=== PATIENT | female | born 1950 | race Caucasian/White ===

== ENCOUNTER → 2018-04-28 01:07 | Outpatient (CLI) | payer MEDICARE, OTHER, SELFPAY ==
--- NOTE | 2018-04-28 10:30 | MERGE_ITS ---
*[facility]* *[facility]* [address] [place] [address] Date of study: 04/28/2018 Transthoracic Echocardiography M-mode, complete 2D, complete spectral Doppler, and color Doppler *STUDY CONCLUSIONS* Summary: 1. Left ventricle: The cavity size was normal. Systolic function was normal. The estimated ejection fraction was 60-65%. Mild hypokinesis of the inferolateral myocardium. Doppler parameters are consistent with high ventricular filling pressure. 2. Mitral valve: There was mild regurgitation. 3. Right ventricle: The cavity size was normal. Wall thickness was normal. Systolic function was normal. 4. Right atrium: The atrium was mildly dilated. 5. Atrial septum: No defect or patent foramen ovale was identified. 6. Tricuspid valve: There was moderate regurgitation. 7. Pulmonary arteries: Pulmonary systolic pressure was in the range of 25mm Hg to 35mm Hg. 8. Inferior vena cava: The vessel was patent and normal in size. The respirophasic diameter changes were in the normal range (greater than or equal to 50%), consistent with normal central venous pressure. *PATIENT PRESENTATION* Height: 180.3cm ((71in) ) S/D Pressure: 137 / 89 Weight: 117.9kg ((259.5lb) ) BSA: 2.36m^2 Test start time: 10:40 AM. Test stop time: 11:30 AM. ORDERING Ravi Parks MD REFERRING Ravi Parks MD PERFORMING Unknown PERFORMING [facility] RESTAURANT ASSISTANT RT Dillan (R)(CANDICE)LOYD *PROCEDURE DATA* Procedure information: The patient was identified by two identifiers. This study was interpreted by [facility]. Pertinent images and digital data are archived for permanent storage and are available for subsequent review. No prior study was available for comparison. Study status: Routine. Transthoracic echocardiography. M-mode, complete 2D, complete spectral Doppler, and color Doppler. A Transthoracic Echocardiogram was performed. Scanning was performed from the parasternal, apical, subcostal, and suprasternal notch acoustic windows. Images were obtained using an [id number] cardiac ultrasound machine. Image quality was adequate. Study completion: The patient tolerated the procedure well. History: PMH: Exertional dyspnea. *CARDIAC ANATOMY* Left ventricle: The cavity size was normal. Systolic function was normal. The estimated ejection fraction was 60-65%. Regional wall motion abnormalities: Mild hypokinesis of the inferolateral myocardium. The tissue Doppler parameters were abnormal. Some parameters suggest diastolic dysfunction. Doppler parameters are consistent with high ventricular filling pressure. Aortic valve: Trileaflet. Doppler: There was no stenosis. There was no regurgitation. VTI ratio of LVOT to aortic valve: 0.71. Valve area (VTI): 2.9cm^2. Indexed valve area (VTI): 1.2cm^2/m^2. Peak velocity ratio of LVOT to aortic valve: 0.69. Valve area (Vmax): 2.8cm^2. Indexed valve area (Vmax): 1.2cm^2/m^2. Mean velocity ratio of LVOT to aortic valve: 0.59. Valve area (Vmean): 2.4cm^2. Indexed valve area (Vmean): 1cm^2/m^2. Mean gradient (S): 2.9mm Hg. Peak gradient (S): 4.8mm Hg. Aorta: Aortic root: The aortic root was normal in size. Ascending aorta: The ascending aorta was normal in size. Mitral valve: Doppler: There was no evidence for stenosis. There was mild regurgitation. Valve area by pressure half-time: 2.6cm^2. Indexed valve area by pressure half-time: 1.1cm^2/m^2. Left atrium: The atrium was normal in size. Atrial septum: No defect or patent foramen ovale was identified. Right ventricle: The cavity size was normal. Wall thickness was normal. Systolic function was normal. Pulmonic valve: Doppler: There was no evidence for stenosis. There was mild regurgitation. Peak gradient (S): 2.7mm Hg. Tricuspid valve: Doppler: There was moderate regurgitation. Pulmonary artery: Poorly visualized. Pulmonary systolic pressure was in the range of 25mm Hg to 35mm Hg. Right atrium: The atrium was mildly dilated. Pericardium: There was no pericardial effusion. Systemic veins: Inferior vena cava: Well visualized. The vessel was patent and normal in size. The respirophasic diameter changes were in the normal range (greater than or equal to 50%), consistent with normal central venous pressure. Baseline ECG: Bradycardia. Measurements Left ventricle Value Reference LV ID, ED, PLAX 5.2 cm 3.5 - 6.0 LV ID, ES, PLAX 3.4 cm 2.1 - 4.0 LV PW thickness, ED, PLAX 0.9 cm LV end-diastolic volume, 1-p A2C 70 ml LV ejection fraction, 1-p A2C 62 % LV end-diastolic volume, 1-p A4C 112 ml LV ejection fraction, 1-p A4C 52 % LV e', lateral 0.039 m/sec LV E/e', lateral 13 LV e', medial 0.039 m/sec LV E/e', medial 13 LV e', average 0.039 m/sec LV E/e', average 13 Ventricular septum Value Reference IVS thickness, ED, PLAX 1.2 cm LVOT Value Reference LVOT ID, A-P 2.3 cm LVOT area 4 cm^2 LVOT peak velocity, S 0.76 m/sec LVOT mean velocity, S 0.49 m/sec LVOT VTI, S 19.5 cm LVOT peak gradient, S 2.3 mm Hg LVOT mean gradient, S 1.1 mm Hg Stroke volume (SV), LVOT DP 79 ml Stroke index (SV/bsa), LVOT DP 33 ml/m^2 Aortic valve Value Reference Aortic valve peak velocity, S 1.1 m/sec Aortic valve mean velocity, S 0.82 m/sec Aortic valve VTI, S 27.3 cm Aortic mean gradient, S 2.9 mm Hg Aortic peak gradient, S 4.8 mm Hg VTI ratio, LVOT/AV 0.71 Aortic valve area, VTI 2.9 cm^2 Velocity ratio, peak, LVOT/AV 0.69 Aortic valve area, peak velocity 2.8 cm^2 Velocity ratio, mean, LVOT/AV 0.59 Aortic valve area, mean velocity 2.4 cm^2 Aortic valve area/bsa, mean velocity 1 cm^2/m^2 Aorta Value Reference Aortic root ID, ED 3.4 cm Ascending aorta ID, A-P, S 3.4 cm RVOT Value Reference RVOT VTI, S 13.8 cm Left atrium Value Reference LA ID, A-P, ES 4.0 cm LA ID/bsa, A-P 1.7 cm/m^2 <=2.2 LA area, ES, A4C 22.3 cm^2 8.8 - 23.4 LA area, ES, A2C 21 cm^2 LA volume/bsa, ES, 1-p A4C 36 ml/m^2 LA volume, ES, 2-p 74 ml LA volume/bsa, ES, 2-p 31 ml/m^2 LA/aortic root ratio 1.18 Mitral valve Value Reference Mitral E-wave peak velocity 0.5 m/sec Mitral A-wave peak velocity 0.71 m/sec Mitral deceleration time (H) 289 ms 150 - 230 Mitral pressure half-time 84 ms Mitral E/A ratio, peak 0.7 Mitral valve area, PHT, DP 2.6 cm^2 Pulmonary veins Value Reference Pulmonary vein peak velocity, S 0.45 m/sec Pulmonary vein peak velocity, D 0.25 m/sec Pulmonary vein velocity ratio, peak, 1.78 S/D Pulmonary vein A-wave reversal peak 0.36 m/sec velocity Pulmonary vein A-wave reversal 166 ms duration Tricuspid valve Value Reference Tricuspid regurg peak velocity 2.5 m/sec Tricuspid peak RV-RA gradient 25.6 mm Hg Right atrium Value Reference RA area, ES, A4C (H) 20 cm^2 8.3 - 19.5 Pulmonic valve Value Reference Pulmonic peak gradient, S 2.7 mm Hg Legend: (L) and (H) mariam values outside specified reference range. I have personally reviewed the images and have reviewed and edited the reported findings. Electronically signed by Moshe Bautitsa MD 04/28/2018 12:45
== END ==
PROVIDERS: PCP Internal Medicine; Visit Provider Internal Medicine
DX: R06.09 Other forms of dyspnea (principal); I08.1 Rheumatic disorders of both mitral and tricuspid valves; I50.1 Left ventricular failure, unspecified
CPT/HCPCS: 93306

== ENCOUNTER 2018-05-27 11:11 | Outpatient (CLI) | payer MEDICARE, OTHER, SELFPAY ==
--- NOTE | 2018-05-27 10:00 | SATEXT_ITS ---
Assessment: Ms. Faith presents for nutritional counseling for weight management. She also reports a history of hyperlipidemia. She states that she has not been physically active for the past year or so as she has been having difficulty with blood clots and has a lot of fatigue. Her diet history shows that she does not eat many processed foods. She and her prepare all of their foods at home. Her recall does show however that she eats large portions of animal proteins in comparison to vegetables and fruits. She also has several sources of grains throughout the day which may be excessive. She is 70 and 282 lbs. Nutritional Diagnosis: Class 3 obesity related to excess energy intake and physical inactivity as evidenced by BMI of 41 kg/m2. Intervention: Acknowledged the positive attributes of her eating plan such as the fact that she eats minimally processed foods. We reviewed the DASH eating plan for heart health and weight management. We looked at what a day's worth of food looks like. Suggested that she stick to her usual eating patterns but change the proportions. For example, reduce the animal protein portion and increase the vegetable. At breakfast, suggested that she increase her fruit or vegetable intake and decrease her intake of cereal and/or bread as well as at lunch time. Provided written materials. Ms. Faith verbalized a good understanding of the information Monitoring and Evaluation: Ms. Faith will self monitor her progress on her action plans which include filling half of her plate with vegetables and decreasing her grains. Ms. Faith will evaluate her nutrition care plan and adjust as needed. She has my contact information and is encouraged to contact me with any questions or concerns regarding her nutrition therapy. Thank you for the referral.
== END 2018-05-27 11:31 ==
PROVIDERS: PCP Internal Medicine; Visit Provider Dietitian, Registered
DX: E66.8 Other obesity (principal); Z68.41 Body mass index [BMI] 40.0-44.9, adult; Z71.3 Dietary counseling and surveillance
CPT/HCPCS: 97802

== ENCOUNTER 2018-07-28 10:17 | Emergency (ER) | payer MEDICARE, OTHER, SELFPAY ==
[2018-07-28] VITALS (21 sets, daily range): BP systolic 110–137; BP diastolic 68–96; PULSE 55–64; RESP 13–22; TEMP 36.7; O2SAT 91–96
--- NOTE | 2018-07-28 11:04 | DI.CT_ITS ---
SYMPTOMS/DIAGNOSIS: SHORTNESS OF BREATH, HX OF PE PE CHEST CT: CT angiography was performed with multi slice acquisition and multi planar and 3D reconstruction. The study was conducted according to the usual protocol with intravenous administration of 100 cc's of Omnipaque 350. There is no evidence of PE. There is no aortic aneurysm or dissection. There is no lung consolidation. There is no pleural effusion or pneumothorax. The heart is within normal limits in size. There is no pericardial effusion. No acute bony abnormality is seen. The soft tissues are unremarkable. There is no lymphadenopathy. There is elevation of the right hemidiaphragm, unchanged when compared with prior images of 08/20/17. SUMMARY: No evidence of pulmonary embolic disease.
--- NOTE | 2018-07-28 11:05 | W.ED.GENAD ---
Discharge Plan Disposition Patient Disposition: HOME Condition: Good Discharge Details Chief Complaint: SOB Clinical Impression: Shortness of breath Primary Care Provider: Ravi Parks ED Provider: Moshe Lugo Home Meds and New Rx's Prescriptions: Continue multivitamin [Daily Multiple] 1 EACH tablet 1 ea PO DAILY RF: 0 acetaminophen [Tylenol Extra Strength] 500 MG tablet 1,000 mg PO Q6H PRN RF: 0 fluticasone 16 GM spray,suspension 1 spray NS DAILY RF: 0 vitamin B complex 1 EACH capsule 1 ea PO DAILY RF: 0 cholecalciferol (vitamin D3) [Vitamin D3] 1,000 UNIT capsule 1,000 unit PO DAILY RF: 0 [id number] serr 1 EACH tablet 1 ea PO DAILY RF: 0 vitamin E succinate 100 UNIT tablet 100 unit PO DAILY RF: 0 vitamin c 1 tab PO DAILY RF: 0 apixaban [Eliquis] 5 MG tablet 5 mg PO BID Qty: 70 RF: 0 sertraline 50 MG tablet 150 mg PO DAILY RF: 0 ferrous sulfate 325 MG tablet 325 mg PO DAILY Qty: 30 RF: 0 omeprazole 20 MG capsule,delayed release(DR/EC) 20 mg PO DAILY Qty: 30 RF: 3 Discharge Instructions Instructions: Dyspnea (ED) Additional Instructions: follow up with your primary care provider in 1-2 weeks if you have worsening symptoms or chest pain/pressure return to the emergency department Medical Decision Making 67 yo female who was dx'd with Pe in November on katie rivasmt with 7 days of shortness of breath and dry cough. Denies fevers or chest pain/pressure. Has clear lungs on exam so doubt copd/asthma. Will eval for anemia, and obtianCTA to eval for PE given wells score moderate. Heart score is 3, given lack of chest pain or increased symptoms with exertion doubt acs. pt remains stable, no evidence of resp distress, labs unremarkable, awaiting CTA. CTA shows no acute findings. She remains stable and has no symptoms. I feel she is stable for outpatient management, will d/c home and have her f/u with he rpcp and return precautions given Differential Diagnosis anemia, pe, nstemi Imaging Data Radiologic Study: Attestation: I personally reviewed and interpreted this imaging study as follows: Imaging: CT Scan Radiologist's impression: no acute findings Lab Data Lab results reviewed: Yes I reviewed the patient's lab results. ECG Data Attestation: I personally reviewed and interpreted this ECG (s) as follows: Prior ECG tracings: available for review Interpretation: sinus rhythm, rate of 64, pr 150, no acute st t wave changes HPI General Mode of arrival: ambulatory. Date/Time Provider Initiated Documentation: 07/28/18 10:42. Limitations to Documentation: no limitations. Information obtained by: patient. History of Present Illness 67 year old F presents to the emergency department with the chief complaint of short of breath, Patient started experiencing this day(s) (7) and it has been constant. No relieving factors improve symptom(s), No exacerbating factors reported . Patient notes cough. Patient did receive the following treatments prior to arrival, none Related Data Home Medications Medication Instructions Recorded Confirmed apixaban [Eliquis] 5 mg PO BID #70 tablet 12/08/17 04/04/18 ferrous sulfate 325 mg PO DAILY #30 tab 12/08/17 04/04/18 sertraline 150 mg PO DAILY tab 12/08/17 04/04/18 Vitamin C 1 tab PO DAILY 12/24/17 04/04/18 acetaminophen [Tylenol Extra 1,000 mg PO Q6H PRN tab-cap 12/24/17 04/04/18 Strength] cholecalciferol (vitamin D3) 1,000 unit PO DAILY 12/24/17 04/04/18 [Vitamin D3] fluticasone 1 spray NS DAILY spray 12/24/17 04/04/18 [id number] serr 1 ea PO DAILY 12/24/17 04/04/18 multivitamin [Daily Multiple] 1 ea PO DAILY 12/24/17 04/04/18 vitamin B complex 1 ea PO DAILY 12/24/17 04/04/18 vitamin E succinate 100 unit PO DAILY 12/24/17 04/04/18 omeprazole 20 mg PO DAILY #30 capsule. 04/08/18 Previous Rx's Medication Instructions Recorded apixaban [Eliquis] 5 mg PO BID #70 tablet 12/08/17 ferrous sulfate 325 mg PO DAILY #30 tab 12/08/17 sertraline 150 mg PO DAILY tab 12/08/17 omeprazole 20 mg PO DAILY #30 capsule. 04/08/18 Allergies Allergy/AdvReac Type Severity Reaction Status Date / Time cefaclor [From Ceclor] AdvReac Skin Rash Unverified 04/08/18 09:51 warfarin [From Coumadin] AdvReac Diarrhea Unverified 04/08/18 09:51 General Stated Complaint: SOB NORM: 2 Review of Systems Review of Systems All systems reviewed & are unremarkable except as noted in HPI and below Constitutional Denies chills, Denies fever(s) and Denies weakness Eyes Denies loss of vision ENT Denies change in voice Cardiovascular Denies chest pain Gastrointestinal Denies abdominal pain, Denies nausea and Denies vomiting Genitourinary Denies dysuria Musculoskeletal Denies joint swelling Integumentary/Breasts Denies rash Neurologic Denies loss of vision and Denies weakness Psychiatric Denies depression Endocrine Denies cold intolerance and Denies heat intolerance Allergic/Immunologic Denies urticaria PFSH Family History Sister DVT of lower extremity (deep venous thrombosis) Medical History Abnormal laboratory test Anticoagulated Calf pain Chronic cough DVT (deep venous thrombosis) Dysthymia Exertional dyspnea Hypercholesteremia Left hip pain Microcytic anemia Obesity Osteoarthritis Pulmonary emboli Situational stress Swollen leg Social History Smoking/Tobacco Use Status: Never Surgical History Colonoscopy - MAC (04/08/18) EGD - MAC (04/08/18) 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 Exam Const General: no acute distress Orientation: alert [facility] Head: normal to inspection Ears: external ears normal General nose exam: external nose normal Mouth: moist mucous membranes Eyes General: appearance normal, both eyes and all related structures Neck Neck: normal visual inspection Resp Effort & Inspection: normal respiratory effort and able to speak in complete sentences Cardio Rate: regular rate Skin General skin exam: no rashes or lesions noted Neuro General: alert and oriented x3 Extrem General: normal to inspection Psych Mental Status: mental status grossly normal Course Vital Signs Temperature 36.7 C 07/28/18 10:48 Pulse 64 07/28/18 10:48 Respiratory Rate 22 07/28/18 10:48 Blood Pressure 110/68 07/28/18 10:48 Pulse Oximetry 93 L 07/28/18 10:48 Temperature 36.7 C 07/28/18 10:48 Temperature Source Temporal Artery Scan 11/08/18 10:48 Pulse 64 07/28/18 10:48 Respiratory Rate 22 07/28/18 10:48 Blood Pressure 110/68 07/28/18 10:48 Blood Pressure Position Supine 07/28/18 10:48 Pulse Oximetry 93 L 07/28/18 10:48 Oxygen Delivery Method Room Air 07/28/18 10:48 Oxygen Flow Rate 0 07/28/18 10:48 Pain Level 0 07/28/18 10:48
[2018-07-28 11:30] LABS: Abs Immature Grans 0.01 k/cumm (0.0-0.09); Absolute Basophil Count 0.04 k/cumm (0.0-0.2); Absolute Eosinophil Count 0.22 k/cumm (0.0-0.7); Absolute Lymphocyte Count 1.66 k/cumm (1.2-3.4); Absolute Monocyte Count 0.62 k/cumm (0.11-0.7); Basophils % 0.5; Eosinophils % 2.8; HCT 38.4 % (36.0-46.0); Immature Grans % 0.1; Lymphocytes % 21.4; Mean Corp. HGB Concentration 31.3 g/dL (32.0-36.0); Mean Corpuscular Hemoglobin 26.6 pg (27.0-33.0); Mean Corpuscular Volume 85.1 fL (80-95); Mean Platelet Volume 10.3 fL (8.0-11.0); Neutrophils % 67.2; Platelet Count 299 x1000/uL (130-400); RBC 4.51 m/cumm (4.00-5.20); White Blood Cell Count 7.75 k/cumm (4.4-10.8)
[2018-07-28 11:31] LABS: PTT Activated 24.7 sec (21.0-31.4); Prothrombin Time 10.1 sec (9.3-10.8)
[2018-07-28 11:32] LABS: ALT 26 U/L (12-78); AST 23 U/L (15-37); Albumin 3.9 g/dL (3.4-5.0); Alkaline Phosphatase 94 U/L (46-116); Anion Gap 9.8 mmol/L (3-11); BUN 20 mg/dL (7-18); Bilirubin, Total 0.3 mg/dL (0.2-1.0); CO2 26.2 mmol/L (21.0-32.0); CREATININE 0.98 mg/dL (0.55-1.02); Calcium 9.2 mg/dL (8.5-10.1); Chloride 103 mmol/L (98-107); Estimated GFR 56.78 (mL/min/1.73m2); Glucose 108 mg/dL (70-100); Lipase 213 U/L (73-393); Potassium 4.3 mmol/L (3.5-5.1); Sodium 139 mmol/L (136-145); Total Protein 7.7 g/dL (6.4-8.2)
[2018-07-28 11:35] LABS: Troponin I < 0.02 ng/mL (0.00-0.06)
[2018-07-28 11:38] LABS: Magnesium 2.3 mg/dL (1.8-2.4); NT-proBNP 91 pg/mL
[2018-07-28] MEDS: Omnipaque 350 MG/ML 100 ML BTL IJ (12:02)
--- NOTE | 2018-07-28 13:38 | DI.VRAD_ITS ---
EXAM: CT Angiography Chest With Intravenous Contrast EXAM DATE/TIME: 07/28/2018 11:56 AM CLINICAL HISTORY: 67 years old, female; Signs and symptoms; Other: Shortness of breath; HX of pe TECHNIQUE: Axial computed tomographic angiography images of the chest with intravenous contrast using CT angiography protocol. All CT scans at this facility use at least one of these dose optimization techniques: automated exposure control; mA and/or kV adjustment per patient size (includes targeted exams where dose is matched to clinical indication); or iterative reconstruction. Coronal and sagittal reformatted images were created and reviewed. MIP reconstructed images were created and reviewed. CONTRAST: 100 ml of omnipaque 350 administered intravenously. COMPARISON: CT CHEST FOR PULMONARY EMBOLUS 03/01/2018 10:46 AM FINDINGS: Pulmonary arteries: Normal. No pulmonary emboli. Aorta: No aortic aneurysm. No aortic dissection. Lungs: No consolidation. No masses. Pleural space: Normal. No pneumothorax. No pleural effusion. Heart: No cardiomegaly. No pericardial effusion. Bones/joints: Unremarkable. No acute fracture. Soft tissues: Unremarkable. Lymph nodes: Unremarkable. No enlarged lymph nodes. Upper abdomen: Right hemidiaphragm elevation. IMPRESSION: No acute findings. Dictated and Authenticated by: Jamil Rios MD. Ordering:ERIN SANDOVAL MD
== END 2018-07-28 14:04 | disposition home or self-care (01) ==
PROVIDERS: Emergency Provider Emergency Medicine; PCP Internal Medicine
DX: R06.02 Shortness of breath (principal); I26.99 Other pulmonary embolism without acute cor pulmonale; Z79.01 Long term (current) use of anticoagulants
CPT/HCPCS: 36415; 71275; 80053; 80076; 83690; 99285; 83735; 83880; 84484; 85025; 85610; 85730; 99284; J3490

== ENCOUNTER 2018-10-05 00:27 | Outpatient (CLI) | payer MEDICARE, OTHER, SELFPAY ==
--- NOTE | 2018-10-05 07:31 | DI.MAMMO_ITS ---
SYMPTOMS/DIAGNOSIS: SCREENING, Z12.31 MAMMOGRAM: Mammograms were interpreted according to the usual protocol including computer analysis with CAD system, tomosynthesis and C view imaging. Comparison is made with exams from 2010 through 2017. The breasts are composed of scattered fibroglandular densities. No suspicious masses or suspicious microcalcifications are seen. There has been no significant change. IMPRESSION: Category I B, negative mammogram. Yearly screening mammography is recommended. [facility] ASSESSMENT OF FINDINGS: Negative. Category 1. Patient will receive a letter notifying them of these results. BI-RADS category B. There are scattered areas of fibroglandular density.
== END 2018-10-05 00:47 ==
PROVIDERS: PCP Internal Medicine; Visit Provider Internal Medicine
DX: Z12.31 Encounter for screening mammogram for malignant neoplasm of breast (principal)
CPT/HCPCS: 77063; 77067

== ENCOUNTER 2018-10-24 02:28 | Outpatient (CLI) | payer MEDICARE, OTHER, SELFPAY ==
[2018-10-24] MEDS: Inhaler, Assist Device 1 EACH MC (09:13)
[2018-10-24] MEDS: Albuterol HFA 18 GM 200 PUFF INH IH (09:13)
--- NOTE | 2018-10-25 15:00 | PFT_ITS ---
PULMONARY FUNCTION TEST DATE OF SERVICE: October 24, 2018 REQUESTING PROVIDER: Ravi Parks M.D. Spirometry shows mild obstructive airways disease with some, but not significant, bronchodilator response. Lung volumes show no evidence of restriction. Diffusion capacity mildly reduced, even when corrected to alveolar volume. Airways resistance normal. IMPRESSION: Mild obstructive airways disease with some, but not significant, bronchodilator response. This is associated with mild diffusion defect. Clinical correlation recommended. Judit
== END 2018-10-24 02:48 ==
PROVIDERS: PCP Internal Medicine; Visit Provider Internal Medicine
DX: R06.09 Other forms of dyspnea (principal)
CPT/HCPCS: 94060; 94150; 94726; 94729

== ENCOUNTER → 2018-11-25 08:36 | Outpatient (BNVA) | payer MEDICARE, OTHER, SELFPAY | PROVIDERS: PCP Internal Medicine; Referring Provider Internal Medicine; Visit Provider Surgery | DX: L98.9 Disorder of the skin and subcutaneous tissue, unspecified (principal) | CPT/HCPCS: 99202; 99213 ==

== ENCOUNTER → 2018-12-09 10:50 | Outpatient (BNVA) | payer MEDICARE, OTHER, SELFPAY | PROVIDERS: PCP Internal Medicine; Referring Provider Internal Medicine; Visit Provider Surgery | DX: C44.629 Squamous cell carcinoma of skin of left upper limb, including shoulder (principal) | CPT/HCPCS: 11621 ==

== ENCOUNTER 2018-12-09 11:49 | Outpatient (CLI) | payer MEDICARE, OTHER, SELFPAY ==
[2018-12-10 16:12] LABS: Protein S Ag, Free 107 % (65 - 160)
[2018-12-12 10:37] LABS: Homocysteine 12.7 umol/L (4.5-12.4)
[2018-12-12 15:32] LABS: Antithrombin 3, Funct. 96 % (85-125)
[2018-12-13 08:20] LABS: Misc Referral (MAYO) See Comments
[2018-12-13 12:26] LABS: Dilute Russell Viper Venom 45.2 secs (27.2-36.9); LA Cascade Summary SEE COMMENTS; Silica Clotting Time 36.7 sec (30.2-48.4)
[2018-12-13 20:50] LABS: Methylenetetrahydrofol Reduc M Heterozygous (Negative)
[2018-12-14 15:03] LABS: Protein C, Functional 139 % (71-199)
[2018-12-14 15:38] LABS: Protein S, Functional 122 % (64-147)
[2018-12-14 16:25] LABS: Factor V Leiden (R506Q) Mutat Negative (Negative); Prothrombin G20210A Mutation Negative (Negative)
== END 2018-12-09 12:09 ==
PROVIDERS: PCP Internal Medicine; Visit Provider Internal Medicine
DX: I26.99 Other pulmonary embolism without acute cor pulmonale (principal); C44.629 Squamous cell carcinoma of skin of left upper limb, including shoulder
CPT/HCPCS: 11621; 36415; 81240; 83090; 85300; 85305; 85306; 87116; 81241; 81291; 85260; 85303; 86147

== ENCOUNTER 2018-12-09 12:20 | Outpatient (REF) | payer MEDICARE, OTHER, SELFPAY ==
--- NOTE | 2018-12-09 11:20 | SKI_PTH ---
PATIENT: Tete Faith LOC: [facility] U#:[id number] AGE/SX: 68/F ROOM: RE12/09/[address]: Mary Arshad MD : 1950 BED: DIS: 12/09/2018 SPEC #: [id number] RECD: 12/09/18 12:48 STATUS: SHAMIKA REAlbert #: [id number] LUCILA: 12/09/18 11:[address]: Mary Arshad DEPT: Surgical Specimen RECD BY: Haley Baldwin ENTERED: 12/09/18 12:49 SP TYPE: SUDEEP VIDALES DR: Ravi Parks Tissues: 1 - SKIN BIOPSY(SHAVE/PUNCH) Procedures: SKIN LEVEL 4 Comments: [id number]
== END 2018-12-09 12:40 ==
LOC: LBN 12:20
PROVIDERS: PCP Internal Medicine; Visit Provider Surgery
DX: C44.629 Squamous cell carcinoma of skin of left upper limb, including shoulder (principal)
CPT/HCPCS: 88305

== ENCOUNTER → 2018-12-16 07:35 | Outpatient (BNVA) | payer MEDICARE, OTHER, SELFPAY | PROVIDERS: PCP Internal Medicine; Referring Provider Internal Medicine; Visit Provider Surgery | DX: Z48.02 Encounter for removal of sutures (principal); Z48.817 Encounter for surgical aftercare following surgery on the skin and subcutaneous tissue ==

== ENCOUNTER 2019-06-27 02:10 | Outpatient (CLI) | payer MEDICARE, OTHER, SELFPAY ==
[2019-06-29 15:35] LABS: DRVVT Screen Ratio 1.1 ratio (<1.2)
[2019-06-29 16:22] LABS: Dilute Russell Viper Venom 43.1 secs (27.2-36.9); LA Cascade Summary SEE COMMENTS; Silica Clotting Time 46.5 sec (30.2-48.4)
== END 2019-06-27 02:30 ==
PROVIDERS: PCP Internal Medicine; Visit Provider Internal Medicine
DX: I26.99 Other pulmonary embolism without acute cor pulmonale (principal)
CPT/HCPCS: 36415; 85613; 87116

== ENCOUNTER 2021-08-11 11:10 | Inpatient (IN) | payer MEDICARE, OTHER, SELFPAY ==
[2021-08-11] VITALS (41 sets, daily range): BP systolic 103–119; BP diastolic 62–83; PULSE 66–80; RESP 15–30; TEMP 35.1–37.1; O2SAT 86–98
--- NOTE | 2021-08-11 11:15 | RT.EKG_ITS ---
APPROVED REPORT Exam: Resting ECG Reason for Exam: SOB Patient Location: E HR:75 bpm ECG Measurements Heart Rate 75 AXIS MT 125 P 0 QRSd 93 QRS -21 QT 368 T 2 QTc 410 Conclusion Sinus rhythm...normal P axis, V-rate 60- 99 sinus rhythm at 75, normal axis, no acute ischemic changes, nondiagnostic EKG
[2021-08-11 11:34] LABS: Source Nasal/Nares
[2021-08-11 11:48] LABS: Abs Immature Grans 0.03 10^3/uL (0.0-0.06); Absolute Lymphocyte Count 0.73 10^3/uL (1.2-3.4); Absolute Monocyte Count 0.58 10^3/uL (0.1-0.8); Absolute Neutrophil Count 4.63 10^3/uL (1.2-6.7); HCT 33.9 % (36.0-46.0); HGB 9.6 g/dL (11.2-15.7); Immature Grans % 0.5; Lymphocytes % 12.2; MCH 19.3 pg (27.0-33.0); MCHC 28.3 % (32.0-36.0); MCV 68.1 fL (80-95); MPV 9.1 fL (8.0-11.0); Monocytes % 9.7; Neutrophils % 77.6; Nucleated RBC 0 %; Platelet Count 271 10^3/uL (130-400); RBC 4.98 10^6/uL (3.93-5.22); RDW 19.5 % (11.7-14.6); RDW-SD 46.5 fL; WBC 5.97 10^3/uL (4.4-10.8)
[2021-08-11 12:21] LABS: D-Dimer 905 ng/mlFEU (<500)
[2021-08-11 12:23] LABS: ALT 47 U/L (14-59); AST 62 U/L (15-37); Albumin 3.2 g/dL (3.4-5.0); Alkaline Phosphatase 79 U/L (46-116); Anion Gap 11.2 mmol/L (3-11); BUN 15 mg/dL (7-18); Bilirubin, Total 0.4 mg/dL (0.2-1.0); CO2 24.8 mmol/L (21.0-32.0); CREATININE 0.9 mg/dL (0.55-1.02); Calcium 8.6 mg/dL (8.5-10.1); Chloride 98 mmol/L (98-107); Glucose 102 mg/dL (74-106); NT-proBNP 91 pg/mL (<300); Potassium 3.7 mmol/L (3.5-5.1); Sodium 134 mmol/L (136-145); Total Protein 7.3 g/dL (6.4-8.2); Troponin I < 0.05 ng/mL (<0.06)
[2021-08-11 12:33] LABS: COVID-19 PCR POSITIVE (Negative)
--- NOTE | 2021-08-11 14:40 | DI.CT_ITS ---
Exam(s) CT CHEST PE CTA EXAM: CT CHEST PE CTA CLINICAL HISTORY: SOB, elevated d-dimer. TECHNIQUE: Imaging Protocol: Axial CT angiography was performed with multi-slice acquisition and mu lti-planar and/or 3D reconstructions. CONTRAST MATERIAL: Intravenous: Omnipaque 350 Contrast volume:100 cc COMPARISON: CT ABD PELVIS WITH CONTRAST from 12/08/2017 CT CHEST FOR PULMONARY EMBOLUS from 03/01/2018 FINDINGS: Exam is limited by patient arm position and respiratory motion. The lower lobe pulmonary Arteries: A re suboptimally evaluated. Tracheobronchial tree: Patent where visualized. Mediastinum and Chanda: No dominant adenopathy or fluid collection. Pulmonary parenchyma: There are bilateral peripheral patchy infiltrates. Atelectasis is noted at the lung bases. No gross evidence of a mass. Pleura: No effusion or pneumothorax. Heart: The heart is not dilated. No coronary artery calcifications are seen. Aorta: Thoracic aorta non-dilated. No aneurysm. No dissection. Upper abdomen: Stable liver cyst. Status post cholecystectomy. Parapelvic cysts left kidney. Bones: Degenerative changes with prominent endplate osteophytes are noted. IMPRESSION: No evidence of pulmonary embolism. Bilateral ground-glass infiltrates, compatible with COVID pneumonia. Findings called to Dr. Thelma Grey of the emergency department. RADIATION DOSE DELIVERED: Total DLP DATA REPOSITORY: All CT scans at this facility are submitted to the National Radiology Data Registry (NRDR) Dose Index Registry (DIR) with the [employer] (A[employer]). RADIATION OPTIMIZATION: All CT scans at this facility use at least one of these dose optimization te chniques: automated exposure control; mA and/or kV adjustment per patient size (includes targeted exa ms where dose is matched to clinical indication); or iterative reconstruction.
[2021-08-11] MEDS: Omnipaque 350 MG/ML 100 ML BTL IJ (14:41)
[2021-08-11] MEDS: Normal Saline - Diluent 50 ML VIAL IV (14:42)
--- NOTE | 2021-08-11 15:08 | W.PM.HP.N ---
Date of service: 08/11/21 Time of Service: 15:08 Assessment and Plan Assessment and plan (1) Pneumonia due to COVID-19 virus: Status: Acute Assessment and plan: requiring oxygen to maintain sats. continue decadron, remdesivir, baricitinab, oxygen to maintain sats above 90 proning (2) Pulmonary emboli: Status: None Assessment and plan: fully anticoagulated (3) DVT prophylaxis: Status: Acute Assessment and plan: fully anticoagulated teds, scds admission discussed with Dr Connors. History of Present Illness History of Present Illness Chief Complaint: shortness of breath Narrative: unvaccinated obese female diagnosed with covid, presents to the ED with increased shortness of breath and hypoxia. work up in the ED consistent with covid pneumonia, no evidence of bacterial super-infection. requiring 4 liter nc to maintain sats in the low 90's. received remdesivir and decadron in the ED. will be admitted to [facility] for further management and monitoring. Review of Systems All systems reviewed & are unremarkable except as noted in HPI and below Constitutional Constitutional: Reports fever(s) and Reports headache(s) ENT Ears, Nose, Mouth, and Throat: Reports headache(s) Cardiovascular Cardiovascular: Reports dyspnea Respiratory Respiratory: Reports cough and Reports dyspnea Musculoskeletal Musculoskeletal: Reports myalgias Neurologic Neurologic: Reports headache(s) [facility] Active Problem List (Updated 12/16/18 @ 07:49 by Mary Arshad MD) DVT prophylaxis (Acute) Pneumonia due to COVID-19 virus (Acute) H/O local excision of skin lesion (Acute ~12/09/18) Medical History (Updated 08/11/21 @ 15:13 by Gunjan Webster NP) Calf pain Chronic cough Dysthymia Hypercholesteremia Left hip pain Osteoarthritis Situational stress Swollen leg Surgical History (Updated 12/16/18 @ 07:49 by Mary Arshad MD) S/P excision of skin lesion, follow-up exam Family History Sister DVT of lower extremity (deep venous thrombosis) Social History Smoking/Tobacco Use Status: Never Smoking risk assessment performed?: Yes Alcohol Intake: current Alcohol Intake frequency: a few times a week Drug use: Never Substance use type: does not use Household members: spouse Meds Allergies and Home Medications Allergies Allergy/AdvReac Type Severity Reaction Status Date / Time cefaclor [From Ceclor] AdvReac Skin Rash Unverified 08/11/21 11:19 warfarin [From Coumadin] AdvReac Diarrhea Unverified 08/11/21 11:19 oxycodone Allergy Intermediate nausea Uncoded 08/11/21 11:19 Home Medications Medication Instructions Recorded Confirmed Type Vitamin C 1 tab PO DAILY 12/24/17 08/11/21 History acetaminophen [Tylenol Extra 1,000 mg PO Q6H PRN tab-cap 12/24/17 08/11/21 History Strength] cholecalciferol (vitamin D3) 1,000 unit PO DAILY 12/24/17 08/11/21 History [Vitamin D3] fluticasone propionate 1 spray NS DAILY spray 12/24/17 08/11/21 History evnnthjgkhp-[id number]-Wvudztfyn serr 1 ea PO DAILY 12/24/17 08/11/21 History multivitamin [Daily Multiple] 1 ea PO DAILY 12/24/17 08/11/21 History vitamin E succinate 100 unit PO DAILY 12/24/17 08/11/21 History omeprazole 20 mg PO DAILY #30 capsule. 04/08/18 08/11/21 Rx fluticasone furoate 200 1 inh IH DAILY 12/09/18 08/11/21 History mcg-vilanterol 25 mcg/dose inhalation powder apixaban [Eliquis] 2.5 mg PO BID 08/12/21 08/12/21 History Exam Const General: cooperative, disheveled, frail appearing and ill appearing acutely Nutritional Appearance: obese Orientation: alert, awake and oriented x3 [facility] Head: normal to inspection, normocephalic and atraumatic Mouth: moist mucous membranes abnormal (dry) Chest Chest: normal inspection of the chest Resp Effort & Inspection: normal respiratory effort and no cough Cardio Rate: regular rate Rhythm: regular rhythm GI Inspection: normal to inspection and obesity Palpation: soft Skin General skin exam: no rashes or lesions noted Neuro General: patient alert, patient awake, patient oriented x3, no meningeal signs and no focal motor deficits Extrem General: normal to inspection and full ROM Results Labs Result diagrams: 08/11/21 11:40 08/11/21 11:40 Labs: Laboratory Results - last 24 hr 08/11/21 08/11/21 08/11/21 11:25 11:40 11:40 WBC 5.97 RBC 4.98 Hgb 9.6 L Hct 33.9 L MCV 68.1 L MCH 19.3 L MCHC 28.3 L RDW 19.5 H Plt Count 271 MPV 9.1 Immature Gran % 0.5 Neutrophils % 77.6 Lymphocytes % 12.2 Monocytes % 9.7 Eosinophils % 0.0 Basophils % 0.0 Nucleated RBC % 0 Absolute Neutrophils 4.63 Absolute Lymphocytes 0.73 L Absolute Monocytes 0.58 Absolute Eosinophils 0.00 Absolute Basophils 0.00 D-Dimer Sodium 134 L Potassium 3.7 Chloride 98 Carbon Dioxide 24.8 Anion Gap 11.2 H BUN 15 Creatinine 0.9 Estimated GFR/1.73 m2 >= 60.00 Glucose 102 Calcium 8.6 Total Bilirubin 0.4 AST 62 H ALT 47 Alkaline Phosphatase 79 Troponin I < 0.05 NT-Pro-B Natriuret Pep 91 Total Protein 7.3 Albumin 3.2 L COVID-19 Source Nasal/Nares SARS-CoV-2 (PCR) POSITIVE A* 08/11/21 11:40 WBC RBC Hgb Hct MCV MCH MCHC RDW Plt Count MPV Immature Gran % Neutrophils % Lymphocytes % Monocytes % Eosinophils % Basophils % Nucleated RBC % Absolute Neutrophils Absolute Lymphocytes Absolute Monocytes Absolute Eosinophils Absolute Basophils D-Dimer 905 H Sodium Potassium Chloride Carbon Dioxide Anion Gap BUN Creatinine Estimated GFR/1.73 m2 Glucose Calcium Total Bilirubin AST ALT Alkaline Phosphatase Troponin I NT-Pro-B Natriuret Pep Total Protein Albumin COVID-19 Source SARS-CoV-2 (PCR) Last Vital Signs Temp 37.0 C 08/11/21 13:42 Pulse 70 08/11/21 14:15 Resp 17 08/11/21 14:20 BP 112/69 08/11/21 14:15 Pulse Ox 92 08/11/21 14:20
--- NOTE | 2021-08-11 15:44 | ED.GENADUL_ITS ---
Discharge Plan Disposition Patient Disposition: [facility] INPATIENT Condition: Serious Discharge Details Chief Complaint: GenMedical Clinical Impression: Pneumonia due to COVID-19 virus Admit Date/Time: 08/12/21 09:48 Admit Provider: Dc Connors Attending Provider: Dc Connors Primary Care Provider: Ravi Parks ED Provider: Thelma Santana Discharge Instructions Activity:: Activity as Tolerated Equipment/Supplies:: No Equipment Needed Diet:: Normal Diet Discharge Orders Discharge Orders: Discharge Order (Routine); Ordered 08/17/21 Ordered By: Kingston Lancaster Discharge Data Discharge Date/Time-TO BE ENTERED AT DEPARTURE: 08/11/21 16:22 Medical Decision Making Tete Faith is a 70 y/o woman presenting to the ED with SOB in setting of one week of fever, SOB, cough, generalized body aches. On exam Pt is non-toxic appearing, but is significantly dyspneic with movement. Sats 91% on 4LNC. On exam Pt speaking in full sentences. No posterior calf TTP. Concern for likely COVID vs other viral PNA vs bacterial PNA vs pulmonary embolism vs CHF vs ACS vs other. Exam/hx at this time not c/w sepsis, acute aortic process, acute emergent intra-abdominal process. EKG obtained, non-diagnostic. Plan for screening labs, IV placement, telemetry, continue NC O2. Chest imaging pending labs. Labs reviewed, WBC 5.97, Hgb 9.6, dimer 905, Cr 0.9, trop neg. COVID test positive. Plan for CT chest. CT chest c/w COVID PNA per radiology. Given O2 requirement, plan for admission. Plan for dexamethasone, remdesivir. Medical Records Medical records reviewed: Yes I reviewed the patient's medical records. Imaging Data Radiologic Study: Attestation: I personally reviewed and interpreted this imaging study as follows: Radiologist's impression: COVID PNA per radiology Lab Data Lab results reviewed: Yes I reviewed the patient's lab results. Labs: Laboratory Tests Range/Units 08/11/21 08/11/21 08/11/21 11:25 11:40 11:40 WBC (4.4-10.8) 10^3/uL 5.97 RBC (3.93-5.22) 10^6/uL 4.98 Hgb (11.2-15.7) g/dL 9.6 L Hct (36.0-46.0) % 33.9 L MCV (80-95) fL 68.1 L MCH (27.0-33.0) pg 19.3 L MCHC (32.0-36.0) % 28.3 L RDW (11.7-14.6) % 19.5 H Plt Count (130-400) 10^3/uL 271 MPV (8.0-11.0) fL 9.1 Immature Gran % 0.5 Neutrophils % 77.6 Lymphocytes % 12.2 Monocytes % 9.7 Eosinophils % 0.0 Basophils % 0.0 Nucleated RBC % % 0 Absolute Neutrophils (1.2-6.7) 10^3/uL 4.63 Absolute Lymphocytes (1.2-3.4) 10^3/uL 0.73 L Absolute Monocytes (0.1-0.8) 10^3/uL 0.58 Absolute Eosinophils (0.0-0.7) 10^3/uL 0.00 Absolute Basophils (0.0-0.2) 10^3/uL 0.00 D-Dimer (<500) ng/mlFEU Sodium (136-145) mmol/L 134 L Potassium (3.5-5.1) mmol/L 3.7 Chloride (98-107) mmol/L 98 Carbon Dioxide (21.0-32.0) mmol/L 24.8 Anion Gap (3-11) mmol/L 11.2 H BUN (7-18) mg/dL 15 Creatinine (0.55-1.02) mg/dL 0.9 Estimated GFR/1.73 m2 (mL/min/1.73m2) >= 60.00 Glucose (74-106) mg/dL 102 Calcium (8.5-10.1) mg/dL 8.6 Total Bilirubin (0.2-1.0) mg/dL 0.4 AST (15-37) U/L 62 H ALT (14-59) U/L 47 Alkaline Phosphatase (46-116) U/L 79 Troponin I (<0.06) ng/mL < 0.05 NT-Pro-B Natriuret Pep (<300) pg/mL 91 Total Protein (6.4-8.2) g/dL 7.3 Albumin (3.4-5.0) g/dL 3.2 L COVID-19 Source Nasal/Nares SARS-CoV-2 (PCR) (Negative) POSITIVE A* Range/Units 08/11/21 11:40 WBC (4.4-10.8) 10^3/uL RBC (3.93-5.22) 10^6/uL Hgb (11.2-15.7) g/dL Hct (36.0-46.0) % MCV (80-95) fL MCH (27.0-33.0) pg MCHC (32.0-36.0) % RDW (11.7-14.6) % Plt Count (130-400) 10^3/uL MPV (8.0-11.0) fL Immature Gran % Neutrophils % Lymphocytes % Monocytes % Eosinophils % Basophils % Nucleated RBC % % Absolute Neutrophils (1.2-6.7) 10^3/uL Absolute Lymphocytes (1.2-3.4) 10^3/uL Absolute Monocytes (0.1-0.8) 10^3/uL Absolute Eosinophils (0.0-0.7) 10^3/uL Absolute Basophils (0.0-0.2) 10^3/uL D-Dimer (<500) ng/mlFEU 905 H Sodium (136-145) mmol/L Potassium (3.5-5.1) mmol/L Chloride (98-107) mmol/L Carbon Dioxide (21.0-32.0) mmol/L Anion Gap (3-11) mmol/L BUN (7-18) mg/dL Creatinine (0.55-1.02) mg/dL Estimated GFR/1.73 m2 (mL/min/1.73m2) Glucose (74-106) mg/dL Calcium (8.5-10.1) mg/dL Total Bilirubin (0.2-1.0) mg/dL AST (15-37) U/L ALT (14-59) U/L Alkaline Phosphatase (46-116) U/L Troponin I (<0.06) ng/mL NT-Pro-B Natriuret Pep (<300) pg/mL Total Protein (6.4-8.2) g/dL Albumin (3.4-5.0) g/dL COVID-19 Source SARS-CoV-2 (PCR) (Negative) ECG Data Attestation: I personally reviewed and interpreted this ECG (s) as follows: Interpretation: EKG shows sinus rhythm at 75, normal axis, no acute ischemic changes, nondiagnostic EKG HPI General Mode of arrival: EMS . Date/Time Provider Initiated Documentation: 08/11/21 11:19 . Limitations to Documentation: no limitations . Information obtained by: patient, RN notes reviewed and old records reviewed . HPI Narrative: Tete Faith is a 70 y/o woman with h/o pulmonary embolism presenting to the emergency department with SOB. Pt reports that approximately one week ago she developed fever, cough, SOB, and generalized body aches. Pt reports that she is not vaccinated for covid had has not been tested for covid. Pt reports that she has a pulse oximeter at home, and her oxygen was 72%. Pt reports that she has been so SOB today that it is difficult to get from her bed to the bathroom. Reports pain everywhere but denies pain worse in any particular area. Reports that her main complaint at this time is SOB. Has been eating and drinking but with decreased appetite. Related Data Home Medications Medication Instructions Recorded Confirmed Vitamin C 1 tab PO DAILY 12/24/17 08/11/21 acetaminophen [Tylenol Extra 1,000 mg PO Q6H PRN tab-cap 12/24/17 08/11/21 Strength] cholecalciferol (vitamin D3) 1,000 unit PO DAILY 12/24/17 08/11/21 [Vitamin D3] fluticasone propionate 1 spray NS DAILY spray 12/24/17 08/11/21 [id number] serr 1 ea PO DAILY 12/24/17 08/11/21 multivitamin [Daily Multiple] 1 ea PO DAILY 12/24/17 08/11/21 vitamin E succinate 100 unit PO DAILY 12/24/17 08/11/21 omeprazole 20 mg PO DAILY #30 capsule. 04/08/18 08/11/21 fluticasone furoate 200 1 inh IH DAILY 12/09/18 08/11/21 mcg-vilanterol 25 mcg/dose inhalation powder Eliquis 2.5 mg PO BID 08/12/21 08/12/21 Previous Rx's Medication Instructions Recorded omeprazole 20 mg PO DAILY #30 capsule. 04/08/18 Allergies Allergy/AdvReac Type Severity Reaction Status Date / Time cefaclor [From Ceclor] AdvReac Skin Rash Unverified 08/11/21 11:19 warfarin [From Coumadin] AdvReac Diarrhea Unverified 08/11/21 11:19 oxycodone Allergy Intermediate nausea Uncoded 08/11/21 11:19 General Stated Complaint: GenMedical NORM: 2 Review of Systems Narrative: Constitutional: reports fevers Eyes: denies eye pain ENT: denies ear pain, dental pain, sore throat Cardiovascular: denies chest pain Respiratory:reports SOB, cough GI: denies abdominal pain, vomiting, diarrhea : denies flank pain MSK: denies back pain, neck pain, reports arthralgias, myalgias Skin: denies rash Neuro: denies numbness, weakness, reports headaches [facility] Active Problem List Pneumonia due to COVID-19 virus (Acute) H/O local excision of skin lesion (Acute ~12/09/18) Microcytic anemia (Acute) Medical History Calf pain Chronic cough Dysthymia Hypercholesteremia Left hip pain Osteoarthritis Situational stress Swollen leg Surgical History S/P excision of skin lesion, follow-up exam Family History Sister DVT of lower extremity (deep venous thrombosis) Social History Smoking/Tobacco Use Status: Never Smoking risk assessment performed?: Yes Alcohol Intake: current Alcohol Intake frequency: a few times a week Drug use: Never Substance use type: does not use Household members: spouse Exam Narrative Exam Narrative: Constitutional: [id number]-cjlkycxus, pleasant, significantly dyspneic while standing moving from stretcher, otherwise conversing normally HENT: head atraumatic/normocephalic/normal inspection, mucous membranes moist Eyes: conjunctiva normal, sclera normal, pupils 3mm b/l Neck: no stridor, normal ROM, trachea midline Chest: normal inspection Resp: normal work of breathing at rest, increased work of breathing while standing Cardio: normal rate, normal rhythm Back: normal inspection, no rash Skin: warm, dry, normal color, no rash Neuro: alert, not altered, grossly non-focal, normal tone Ext: no edema, no posterior calf tenderness to palpation Psych: normal mood, normal affect, normal behavior Course Vital Signs Vital signs: Vital Signs Respiratory Rate 17 08/11/21 11:14 Pulse Oximetry 97 08/11/21 11:14 Temperature 37.0 C 08/11/21 13:42 Temperature Source Oral 08/11/21 13:42 Pulse 70 08/11/21 14:15 Pulse 69 08/11/21 14:20 Respiratory Rate 17 08/11/21 14:20 Respiratory Effort Non-Labored 08/11/21 13:34 Respiratory Depth Normal 08/11/21 13:34 Respiratory Pattern Normal 08/11/21 13:34 Blood Pressure 112/69 08/11/21 14:15 Blood Pressure Mean 79 08/11/21 14:15 Blood Pressure Position Supine 08/11/21 11:15 Pulse Oximetry 92 08/11/21 14:20 Oxygen Delivery Method Nasal Cannula 08/11/21 11:15 Pain Level 4 08/11/21 11:15 Lab/Test Results Lab/Test Results: Laboratory Tests Range/Units 08/11/21 08/11/21 08/11/21 11:25 11:40 11:40 WBC (4.4-10.8) 10^3/uL 5.97 RBC (3.93-5.22) 10^6/uL 4.98 Hgb (11.2-15.7) g/dL 9.6 L Hct (36.0-46.0) % 33.9 L MCV (80-95) fL 68.1 L MCH (27.0-33.0) pg 19.3 L MCHC (32.0-36.0) % 28.3 L RDW (11.7-14.6) % 19.5 H Plt Count (130-400) 10^3/uL 271 MPV (8.0-11.0) fL 9.1 Immature Gran % 0.5 Neutrophils % 77.6 Lymphocytes % 12.2 Monocytes % 9.7 Eosinophils % 0.0 Basophils % 0.0 Nucleated RBC % % 0 Absolute Neutrophils (1.2-6.7) 10^3/uL 4.63 Absolute Lymphocytes (1.2-3.4) 10^3/uL 0.73 L Absolute Monocytes (0.1-0.8) 10^3/uL 0.58 Absolute Eosinophils (0.0-0.7) 10^3/uL 0.00 Absolute Basophils (0.0-0.2) 10^3/uL 0.00 D-Dimer (<500) ng/mlFEU Sodium (136-145) mmol/L 134 L Potassium (3.5-5.1) mmol/L 3.7 Chloride (98-107) mmol/L 98 Carbon Dioxide (21.0-32.0) mmol/L 24.8 Anion Gap (3-11) mmol/L 11.2 H BUN (7-18) mg/dL 15 Creatinine (0.55-1.02) mg/dL 0.9 Estimated GFR/1.73 m2 (mL/min/1.73m2) >= 60.00 Glucose (74-106) mg/dL 102 Calcium (8.5-10.1) mg/dL 8.6 Total Bilirubin (0.2-1.0) mg/dL 0.4 AST (15-37) U/L 62 H ALT (14-59) U/L 47 Alkaline Phosphatase (46-116) U/L 79 Troponin I (<0.06) ng/mL < 0.05 NT-Pro-B Natriuret Pep (<300) pg/mL 91 Total Protein (6.4-8.2) g/dL 7.3 Albumin (3.4-5.0) g/dL 3.2 L COVID-19 Source Nasal/Nares SARS-CoV-2 (PCR) (Negative) POSITIVE A* Range/Units 08/11/21 11:40 WBC (4.4-10.8) 10^3/uL RBC (3.93-5.22) 10^6/uL Hgb (11.2-15.7) g/dL Hct (36.0-46.0) % MCV (80-95) fL MCH (27.0-33.0) pg MCHC (32.0-36.0) % RDW (11.7-14.6) % Plt Count (130-400) 10^3/uL MPV (8.0-11.0) fL Immature Gran % Neutrophils % Lymphocytes % Monocytes % Eosinophils % Basophils % Nucleated RBC % % Absolute Neutrophils (1.2-6.7) 10^3/uL Absolute Lymphocytes (1.2-3.4) 10^3/uL Absolute Monocytes (0.1-0.8) 10^3/uL Absolute Eosinophils (0.0-0.7) 10^3/uL Absolute Basophils (0.0-0.2) 10^3/uL D-Dimer (<500) ng/mlFEU 905 H Sodium (136-145) mmol/L Potassium (3.5-5.1) mmol/L Chloride (98-107) mmol/L Carbon Dioxide (21.0-32.0) mmol/L Anion Gap (3-11) mmol/L BUN (7-18) mg/dL Creatinine (0.55-1.02) mg/dL Estimated GFR/1.73 m2 (mL/min/1.73m2) Glucose (74-106) mg/dL Calcium (8.5-10.1) mg/dL Total Bilirubin (0.2-1.0) mg/dL AST (15-37) U/L ALT (14-59) U/L Alkaline Phosphatase (46-116) U/L Troponin I (<0.06) ng/mL NT-Pro-B Natriuret Pep (<300) pg/mL Total Protein (6.4-8.2) g/dL Albumin (3.4-5.0) g/dL COVID-19 Source SARS-CoV-2 (PCR) (Negative)
[2021-08-11 16:01] LABS: Ferritin 52 ng/mL (8-252)
[2021-08-11] MEDS: Dexamethasone 10 MG/ML VIAL IVP (16:01)
[2021-08-11] MEDS: REMDESIVIR 200 MG in Normal Saline 250 ML 250 MG IVPB (16:02)
[2021-08-11 16:13] LABS: Procalcitonin < 0.1 ng/mL
[2021-08-11 16:32] LABS: C-Reactive Protein 1.55 mg/dL (0.0-0.3)
[2021-08-11] MEDS: Apixaban 2.5 MG TAB PO (20:03)
[2021-08-11] MEDS: Ascorbic Acid 500 MG TAB 1000 MG PO (20:03)
[2021-08-12] VITALS (7 sets, daily range): BP systolic 88–111; BP diastolic 51–66; PULSE 63–79; RESP 16–20; TEMP 31–36.5; O2SAT 88–95
[2021-08-12] MEDS: Budesonide/Formoterol 160/4.5 6 GM 60 PUFF INH IH (08:07)
[2021-08-12] MEDS: Cholecalciferol (Vitamin D3) 1,000 UNIT TAB 2000 UNITS PO (08:10)
[2021-08-12] MEDS: Zinc Sulfate 220 MG TAB PO (08:11)
[2021-08-12] MEDS: Dexamethasone 4 MG TAB 6 MG PO (08:11)
[2021-08-12] MEDS: Ascorbic Acid 500 MG TAB 1000 MG PO ×2 (08:11→20:07)
[2021-08-12] MEDS: Apixaban 2.5 MG TAB PO ×2 (08:11→20:07)
[2021-08-12] MEDS: Multivitamin TAB 1 TAB PO (08:11)
[2021-08-12] MEDS: Omeprazole 20 MG CAPCR PO (08:11)
--- NOTE | 2021-08-12 08:32 | INITIAL_ITS ---
- If Service Date Differs Date of service: 08/12/21 Time of Service: 08:32 Care Management Initial Assess REASON FOR HOSPITALIZATION:: Covid Pneumonia PAST MEDICAL HISTORY/PAST SURGICAL HISTORY:: Active Problem List (Updated 12/16/18 @ 07:49 by Mary Arshad MD). DVT prophylaxis (Acute). Pneumonia due to COVID-19 virus (Acute). H/O local excision of skin lesion (Acute ~12/09/18). Medical History (Updated 08/11/21 @ 15:13 by Gunjan Webster NP). Calf pain. Chronic cough. Dysthymia. Hypercholesteremia. Left hip pain. Osteoarthritis. Situational stress. Swollen leg. Surgical History (Updated 12/16/18 @ 07:49 by Mary Arshad MD). S/P excision of skin lesion, follow-up exam PREVIOUS FUNCTIONAL STATUS/SOCIAL/FAMILY SUPPORTS:: Tete lives in [place], [place] with her Vahe. Tete has no children but Vahe has 5 from a previous marriage. Tete's Randy Mendoza in 2017 and she and Vahe have been marrried since 2018. Tete is independent at baseline and does not work outside of the home. CURRENT FUNCTIONAL STATUS:: CM was unable to meet with Tete as she is on Covid isolation. CM was able to speak to her on the phone briefly and questions were answered. It was discovered that Tete's DPOA for healthcare still lists Randy Mendoza as her HCA so that form will need to be revised during this admission when Tete is feeling a bit better. ADVANCE DIRECTIVES:: On File at [facility]. Lists Randy Mendoza as HCA - as he is , the form will need revision Has patient been provided with info about the portal/API?: Yes Did the patient sign up for the portal?: No CODE STATUS:: Full Code INSURANCE COVERAGE / FINANCIAL ISSUES:: Medicare. for Life CURRENT HOME/COMMUNITY SERVICES/EQUIPMENT:: using a walker with Covid due to shortness of breath PRIMARY CARE PHYSICIAN:: Ravi Parks POTENTIAL DISCHARGE NEEDS:: Follow up with PCP and plan of care PATIENT/FAMILY EDUCATION NEEDS:: Review of discharge instructions,medications, follow up plan, activity, limitations, Ask Me Three TRANSPORTATION:: via private vehicle with family PLAN:: Tete will likely be discharged with no new services when medically cleared but it is a little early in her hospital stay to know how she will do. It is possible that home health may be helpful. She will follow up with her community providers and plan of care and transport with family. CM will continue to assess for ongoing discharge needs.
--- NOTE | 2021-08-12 10:24 | W.PM.PROGNOT ---
Date of Service Date of service: 08/12/21 Time of Service: 10:24 Assessment and Plan Assessment and plan (1) Pneumonia due to COVID-19 virus: Status: Acute Assessment and plan: requiring oxygen to maintain sats. continue decadron, remdesivir, baricitinab, oxygen to maintain sats above 90 proning (2) Pulmonary emboli: Status: None Assessment and plan: fully anticoagulated (3) DVT prophylaxis: Status: Acute Assessment and plan: fully anticoagulated teds, scds discussed with Dr Connors. Subjective Subjective Interval history since last seen: increased oxygen requirements overnight. Exam Const General: cooperative, disheveled, frail appearing and ill appearing acutely Nutritional Appearance: obese Orientation: alert, awake and oriented x3 HENMT Head: normal to inspection, normocephalic and atraumatic Mouth: moist mucous membranes abnormal (dry) Chest Chest: normal inspection of the chest Resp Effort & Inspection: normal respiratory effort and no cough Cardio Rate: regular rate Rhythm: regular rhythm GI Inspection: normal to inspection and obesity Palpation: soft Skin General skin exam: no rashes or lesions noted Neuro General: patient alert, patient awake, patient oriented x3, no meningeal signs and no focal motor deficits Extrem General: normal to inspection and full ROM Objective Last Vital Signs Temp 35.3 C L 08/12/21 08:00 Pulse 79 08/12/21 08:00 Resp 20 08/12/21 08:00 BP 95/59 L 08/12/21 08:00 Pulse Ox 88 L 08/12/21 08:00 Laboratory Results - last 24 hr 08/11/21 08/11/21 08/11/21 11:25 11:40 11:40 WBC 5.97 RBC 4.98 Hgb 9.6 L Hct 33.9 L MCV 68.1 L MCH 19.3 L MCHC 28.3 L RDW 19.5 H Plt Count 271 MPV 9.1 Immature Gran % 0.5 Neutrophils % 77.6 Lymphocytes % 12.2 Monocytes % 9.7 Eosinophils % 0.0 Basophils % 0.0 Nucleated RBC % 0 Absolute Neutrophils 4.63 Absolute Lymphocytes 0.73 L Absolute Monocytes 0.58 Absolute Eosinophils 0.00 Absolute Basophils 0.00 D-Dimer Sodium 134 L Potassium 3.7 Chloride 98 Carbon Dioxide 24.8 Anion Gap 11.2 H BUN 15 Creatinine 0.9 Estimated GFR/1.73 m2 >= 60.00 Glucose 102 Calcium 8.6 Ferritin Total Bilirubin 0.4 AST 62 H ALT 47 Alkaline Phosphatase 79 Troponin I < 0.05 C-Reactive Protein NT-Pro-B Natriuret Pep 91 Total Protein 7.3 Albumin 3.2 L Procalcitonin COVID-19 Source Nasal/Nares SARS-CoV-2 (PCR) POSITIVE A* 08/11/21 08/11/21 08/11/21 11:40 11:40 11:40 WBC RBC Hgb Hct MCV MCH MCHC RDW Plt Count MPV Immature Gran % Neutrophils % Lymphocytes % Monocytes % Eosinophils % Basophils % Nucleated RBC % Absolute Neutrophils Absolute Lymphocytes Absolute Monocytes Absolute Eosinophils Absolute Basophils D-Dimer 905 H Sodium Potassium Chloride Carbon Dioxide Anion Gap BUN Creatinine Estimated GFR/1.73 m2 Glucose Calcium Ferritin 52 Total Bilirubin AST ALT Alkaline Phosphatase Troponin I C-Reactive Protein 1.55 H NT-Pro-B Natriuret Pep Total Protein Albumin Procalcitonin < 0.1 COVID- Source SARS-CoV-2 (PCR) 08/11/21 14:19 WBC RBC Hgb Hct MCV MCH MCHC RDW Plt Count MPV Immature Gran % Neutrophils % Lymphocytes % Monocytes % Eosinophils % Basophils % Nucleated RBC % Absolute Neutrophils Absolute Lymphocytes Absolute Monocytes Absolute Eosinophils Absolute Basophils D-Dimer Sodium Potassium Chloride Carbon Dioxide Anion Gap BUN Creatinine Estimated GFR/1.73 m2 Glucose Calcium Ferritin Total Bilirubin AST ALT Alkaline Phosphatase Troponin I Cancelled C-Reactive Protein NT-Pro-B Natriuret Pep Total Protein Albumin Procalcitonin COVID-19 Source SARS-CoV-2 (PCR)
--- NOTE | 2021-08-12 15:50 | PHA.REVIEW ---
Pharmacy Admission Review - Admission Clinical Review (Last Updated 12/16/18 @ 07:48 by Mary Arshad MD) DVT prophylaxis (Acute) Pneumonia due to COVID-19 virus (Acute) cefaclor [From Ceclor] Adverse Reaction (Unverified 08/11/21 11:19) Skin Rash warfarin [From Coumadin] Adverse Reaction (Unverified 08/11/21 11:19) Diarrhea oxycodone Allergy (Intermediate, Uncoded 08/11/21 11:19) nausea Resuscitation Status Full Code Height 5 ft 11 in Weight 122.47 kg - Renal Dosing Renal Dosing: BUN 15 mg/dL (7-18) 08/11/21 11:40 Creatinine 0.9 mg/dL (0.55-1.02) 08/11/21 11:40 Medications needing adjustments: Reviewed (SCr: 0.9, CrCl: ~85.2mL/min (using adjusted body weight). All medications properly dosed.) - Anticoagulation Anticoagulation: Hgb 9.6 g/dL (11.2-15.7) L 08/11/21 11:40 Hct 33.9 % (36.0-46.0) L 08/11/21 11:40 Plt Count 271 10^3/uL (130-400) 08/11/21 11:40 Creatinine 0.9 mg/dL (0.55-1.02) 08/11/21 11:40 DVT Prophylaxis: N/A Therapeutic Anticoagulation: Reviewed Medications: Apixaban (Apixaban 2.5mg BID continued from home med list.) - Opiate Usage Evaluate Pain Scale/Pains Meds: N/A (No opiates ordered this admission.) - Relevant Labs Sodium 134 mmol/L (136-145) L 08/11/21 11:40 Potassium 3.7 mmol/L (3.5-5.1) 08/11/21 11:40 Chloride 98 mmol/L (98-107) 08/11/21 11:40 C-Reactive Protein 1.55 mg/dL (0.0-0.3) H 08/11/21 11:40 Electrolytes, C-Reactive P, ESR: Reviewed - DM Control DM Control: Glucose 102 mg/dL (74-106) 08/11/21 11:40 Insulin Dosing: N/A - Heart Failure/WA Heart Failure/WA: Troponin I Cancelled 08/11/21 14:19 NT-Pro-B Natriuret Pep 91 pg/mL (<300) 08/11/21 11:40 EF%, DIANA's, B-Blockers, Diuretics: N/A - BP Control BP Control: Blood Pressure 88/51 Blood Pressure 96/64 Blood Pressure 95/59 Blood Pressure 111/66 If elevated: Reviewed (Blood pressure low so far this admission. No BP medications ordered. Monitor BP.) - Qtc Review If Elevated: N/A (QTc 410 on admission.) - IV to PO Switch IV Medications: Reviewed - Home Meds Home Med List reviewed: Intervened Relevent Home Meds Not ordered & why?: Breo 200/25 (replaced by Symbicort 160/4.5), Decreased dose of Eliquis to 2.5mg BID (per home med list). - Current meds Current Medication Order Review: Reviewed - Comments Comments/Follow Ups: Continue to monitor blood pressure, labs, vitals and changes in medications.
[2021-08-12] MEDS: Normal Saline Flush 10 ML SYR IVP (20:08)
[2021-08-13] VITALS (9 sets, daily range): BP systolic 96–122; BP diastolic 48–70; PULSE 51–65; RESP 16–20; TEMP 35.6–36.5; O2SAT 92–96
[2021-08-13] MEDS: Acetaminophen 500 MG TAB 1000 MG PO (02:44)
[2021-08-13 07:22] LABS: Abs Immature Grans 0.03 10^3/uL (0.0-0.06); Absolute Lymphocyte Count 1.02 10^3/uL (1.2-3.4); Absolute Monocyte Count 0.53 10^3/uL (0.1-0.8); Absolute Neutrophil Count 3.54 10^3/uL (1.2-6.7); HCT 32.9 % (36.0-46.0); Immature Grans % 0.6; Lymphocytes % 19.9; MCHC 27.4 % (32.0-36.0); MCV 69.6 fL (80-95); MPV 9.8 fL (8.0-11.0); Monocytes % 10.4; Neutrophils % 69.1; Nucleated RBC 0 %; Platelet Count 292 10^3/uL (130-400); RBC 4.73 10^6/uL (3.93-5.22); RDW 19.6 % (11.7-14.6); RDW-SD 47.1 fL; WBC 5.12 10^3/uL (4.4-10.8)
[2021-08-13 07:45] LABS: ALT 68 U/L (14-59); AST 78 U/L (15-37); Albumin 2.9 g/dL (3.4-5.0); Alkaline Phosphatase 77 U/L (46-116); Anion Gap 9.9 mmol/L (3-11); BUN 23 mg/dL (7-18); Bilirubin, Direct 0.1 mg/dL (0.0-0.2); Bilirubin, Total 0.3 mg/dL (0.2-1.0); C-Reactive Protein 0.66 mg/dL (0.0-0.3); CO2 27.1 mmol/L (21.0-32.0); CREATININE 0.8 mg/dL (0.55-1.02); Calcium 8.6 mg/dL (8.5-10.1); Chloride 102 mmol/L (98-107); Glucose 114 mg/dL (74-106); Potassium 3.8 mmol/L (3.5-5.1); Sodium 139 mmol/L (136-145); Total Protein 6.5 g/dL (6.4-8.2)
[2021-08-13 07:46] LABS: Diff Comment RBC Morph Reviewed; Hypochromasia 2+; Microcytosis 2+
[2021-08-13] MEDS: Fluticasone NASAL SPRAY 16 GM BTL NS (07:50)
[2021-08-13] MEDS: Budesonide/Formoterol 160/4.5 6 GM 60 PUFF INH IH ×2 (07:51→20:12)
[2021-08-13] MEDS: Multivitamin TAB 1 TAB PO (07:55)
[2021-08-13] MEDS: Apixaban 2.5 MG TAB PO ×2 (07:55→20:10)
[2021-08-13] MEDS: Ascorbic Acid 500 MG TAB 1000 MG PO ×2 (07:55→20:10)
[2021-08-13] MEDS: Dexamethasone 4 MG TAB 6 MG PO (07:56)
[2021-08-13] MEDS: Cholecalciferol (Vitamin D3) 1,000 UNIT TAB 2000 UNITS PO (07:56)
[2021-08-13] MEDS: Zinc Sulfate 220 MG TAB PO (07:56)
[2021-08-13] MEDS: Omeprazole 20 MG CAPCR PO (07:56)
[2021-08-13 09:42] LABS: D-Dimer 789 ng/mlFEU (<500)
--- NOTE | 2021-08-13 11:35 | PGE_ITS ---
Date of Service Date of service: 08/13/21 Time of Service: 11:35 Assessment and Plan Assessment and plan (1) Pneumonia due to COVID-19 virus: Status: Acute Assessment and plan: still requiring oxygen to maintain sats, on high flow with FIO2 greater than 50% continue decadron, remdesivir, baricitinab, oxygen to maintain sats above 90 not proning d/t employee relations specialist (2) Pulmonary emboli: Status: None Assessment and plan: fully anticoagulated (3) DVT prophylaxis: Status: Acute Assessment and plan: fully anticoagulated teds, scds (4) Discharge planning issues: Status: Acute Assessment and plan: anticipate at discharge to home with no services. discussed with Dr Connors. Subjective Subjective Patient reports: no new complaints, shortness of breath and afebrile Interval history since last seen: continues to have high oxygen requirements, reports feeling markedly better, eating and drinking well, reports voiding without difficulty and bowels functioning well. Exam Const General: cooperative Nutritional Appearance: obese Orientation: alert, awake and oriented x3 HENMT Head: normal to inspection, normocephalic and atraumatic Mouth: moist mucous membranes abnormal (dry) Chest Chest: normal inspection of the chest Resp Effort & Inspection: able to speak in complete sentences and no cough Cardio Rate: regular rate (on telemetry, sinus) Rhythm: regular rhythm Neuro General: patient alert, patient awake and patient oriented x3 Psych Mood: congruent mood Affect: normal affect Attitude: cooperative Thought Process: normal Thought Content: normal Insight: insight good Judgment: judgment good Objective Last Vital Signs Temp 35.6 C L 08/13/21 10:03 Pulse 65 08/13/21 10:03 Resp 16 08/13/21 10:03 BP 96/52 L 08/13/21 10:03 Pulse Ox 94 08/13/21 10:03 Laboratory Results - last 24 hr 08/13/21 08/13/21 08/13/21 06:30 06:30 06:30 WBC 5.12 RBC 4.73 Hgb 9.0 L Hct 32.9 L MCV 69.6 L MCH 19.0 L MCHC 27.4 L RDW 19.6 H Plt Count 292 MPV 9.8 Immature Gran % 0.6 Neutrophils % 69.1 Lymphocytes % 19.9 Monocytes % 10.4 Eosinophils % 0.0 Basophils % 0.0 Nucleated RBC % 0 Absolute Neutrophils 3.54 Absolute Lymphocytes 1.02 L Absolute Monocytes 0.53 Absolute Eosinophils 0.00 Absolute Basophils 0.00 RBC Morphology See Below Hypochromasia 2+ Microcytosis 2+ D-Dimer 789 H Sodium 139 Potassium 3.8 Chloride 102 Carbon Dioxide 27.1 Anion Gap 9.9 BUN 23 H Creatinine 0.8 Estimated GFR/1.73 m2 >= 60.00 Glucose 114 H Calcium 8.6 Total Bilirubin 0.3 Conjugated Bilirubin 0.1 AST 78 H ALT 68 H Alkaline Phosphatase 77 C-Reactive Protein 0.66 H Total Protein 6.5 Albumin 2.9 L
--- NOTE | 2021-08-13 19:02 | CMPROGNOTE_ITS ---
- If Service Date Differs Date of service: 08/13/21 Time of Service: 19:02 Care Management Progress Note S/O: CM spoke to Tete over the phone today, as she remains on Covid 19 precautions. Tete reported that she feels that she is improving. She is on high flow with FIO2 greater than 50%. She reported that she is not able to prone currently because she has a heart monitor on which makes it very uncomfortable. She asked CM for a [employer] version Bible, which CM looked for and asked the Autopsy Assistant for, but is not currently available. CM provided a new [place] AD for her to look at and fill out, if she desires, as well as a coloring book and word search to help keep her busy while she is inpatient. CM will continue to follow. A: Tete is a 70 year old female admitted to [facility] on 08/12/21 for Covid Pneumonia. P: Tete will likely be discharged with no new services when medically cleared but it is a little early in her hospital stay to know how she will do. It is possible that home health may be helpful. She will follow up with her community providers and plan of care and transport with family. CM will continue to assess for ongoing discharge needs.
[2021-08-14] VITALS (11 sets, daily range): BP systolic 95–124; BP diastolic 49–77; PULSE 46–62; RESP 14–20; TEMP 31–36.2; O2SAT 50–95
[2021-08-14] MEDS: Apixaban 2.5 MG TAB PO ×2 (08:53→20:27)
[2021-08-14] MEDS: Multivitamin TAB 1 TAB PO (08:53)
[2021-08-14] MEDS: Ascorbic Acid 500 MG TAB 1000 MG PO ×2 (08:53→20:27)
[2021-08-14] MEDS: Cholecalciferol (Vitamin D3) 1,000 UNIT TAB 2000 UNITS PO (08:53)
[2021-08-14] MEDS: Omeprazole 20 MG CAPCR PO (08:53)
[2021-08-14] MEDS: Dexamethasone 4 MG TAB 6 MG PO (08:53)
[2021-08-14] MEDS: Zinc Sulfate 220 MG TAB PO (08:53)
[2021-08-14] MEDS: Fluticasone NASAL SPRAY 16 GM BTL NS (08:54)
--- NOTE | 2021-08-14 10:13 | W.PM.PROGNOT ---
Date of Service Date of service: 08/14/21 Time of Service: 10:13 Assessment and Plan Assessment and plan (1) Pneumonia due to COVID-19 virus: Status: Acute Assessment and plan: still requiring oxygen to maintain sats, on high flow with FIO2 greater than 50% continue decadron, remdesivir, baricitinab, oxygen to maintain sats above 90 not proning d/t monitor technician (2) Pulmonary emboli: Status: None Assessment and plan: fully anticoagulated (3) DVT prophylaxis: Status: Acute Assessment and plan: fully anticoagulated teds, scds (4) Discharge planning issues: Status: Acute Assessment and plan: anticipate at discharge to home with no services. discussed with Dr Connors. Subjective Subjective Patient reports: no new complaints, feels better, tolerating liquids well, tolerating a regular diet, voiding w/o difficulty, bowel movement and afebrile Exam Const General: cooperative Nutritional Appearance: obese Orientation: alert, awake and oriented x3 HENMT Head: normal to inspection, normocephalic and atraumatic Mouth: moist mucous membranes abnormal (dry) Chest Chest: normal inspection of the chest Resp Effort & Inspection: able to speak in complete sentences and no cough Cardio Rate: regular rate (on telemetry, sinus) Rhythm: regular rhythm GI Inspection: normal to inspection and obesity Palpation: soft Skin General skin exam: no rashes or lesions noted Neuro General: patient alert, patient awake and patient oriented x3 Extrem General: normal to inspection and full ROM Psych Mood: congruent mood Affect: normal affect Attitude: cooperative Thought Process: normal Thought Content: normal Insight: insight good Judgment: judgment good Objective Last Vital Signs Temp 35.9 C L 08/14/21 09:01 Pulse 58 L 08/14/21 09:01 Resp 20 08/14/21 09:01 BP 95/49 L 08/14/21 09:01 Pulse Ox 95 08/14/21 09:01
[2021-08-14] MEDS: Budesonide/Formoterol 160/4.5 6 GM 60 PUFF INH IH ×2 (10:17→20:28)
[2021-08-14] MEDS: Normal Saline Flush 10 ML SYR IVP (20:28)
[2021-08-15] VITALS (7 sets, daily range): BP systolic 110–125; BP diastolic 65–77; PULSE 57–63; RESP 12–16; TEMP 36–36.4; O2SAT 92–100
[2021-08-15 07:50] LABS: Abs Immature Grans 0.07 10^3/uL (0.0-0.06); Absolute Lymphocyte Count 1.15 10^3/uL (1.2-3.4); Absolute Monocyte Count 0.65 10^3/uL (0.1-0.8); Absolute Neutrophil Count 5.46 10^3/uL (1.2-6.7); HCT 34.7 % (36.0-46.0); HGB 9.5 g/dL (11.2-15.7); Lymphocytes % 15.7; MCH 19.2 pg (27.0-33.0); MCHC 27.4 % (32.0-36.0); MCV 70.2 fL (80-95); MPV 9.6 fL (8.0-11.0); Monocytes % 8.9; Neutrophils % 74.4; Nucleated RBC 0 %; Platelet Count 297 10^3/uL (130-400); RBC 4.94 10^6/uL (3.93-5.22); RDW 19.8 % (11.7-14.6); RDW-SD 47.8 fL; WBC 7.33 10^3/uL (4.4-10.8)
[2021-08-15 08:03] LABS: ALT 129 U/L (14-59); AST 109 U/L (15-37); Alkaline Phosphatase 91 U/L (46-116); Anion Gap 9.1 mmol/L (3-11); BUN 17 mg/dL (7-18); Bilirubin, Total 0.4 mg/dL (0.2-1.0); CO2 24.9 mmol/L (21.0-32.0); CREATININE 0.7 mg/dL (0.55-1.02); Calcium 8.7 mg/dL (8.5-10.1); Chloride 104 mmol/L (98-107); Glucose 105 mg/dL (74-106); Potassium 4.1 mmol/L (3.5-5.1); Sodium 138 mmol/L (136-145); Total Protein 6.8 g/dL (6.4-8.2)
[2021-08-15 08:16] LABS: Anisocytosis 1+; Diff Comment Diff Reviewed; Hypochromasia 1+; Microcytosis 2+
[2021-08-15 08:17] LABS: Polychromasia Present
[2021-08-15] MEDS: Budesonide/Formoterol 160/4.5 6 GM 60 PUFF INH IH ×2 (08:25→21:03)
[2021-08-15] MEDS: Apixaban 2.5 MG TAB PO ×2 (09:31→21:03)
[2021-08-15] MEDS: Dexamethasone 4 MG TAB 6 MG PO (09:32)
[2021-08-15] MEDS: Ascorbic Acid 500 MG TAB 1000 MG PO ×2 (09:32→21:03)
[2021-08-15] MEDS: Fluticasone NASAL SPRAY 16 GM BTL NS (09:32)
[2021-08-15] MEDS: Cholecalciferol (Vitamin D3) 1,000 UNIT TAB 2000 UNITS PO (09:32)
[2021-08-15] MEDS: Omeprazole 20 MG CAPCR PO (09:33)
[2021-08-15] MEDS: Multivitamin TAB 1 TAB PO (09:33)
[2021-08-15] MEDS: Zinc Sulfate 220 MG TAB PO (09:34)
--- NOTE | 2021-08-15 09:53 | CMPROGNOTE_ITS ---
- If Service Date Differs Date of service: 08/15/21 Time of Service: 09:53 Care Management Progress Note S/O: CM is unable to meet with Tete in person due to Covid precautions but does speak with her on the telephone. Tete reports that she is maintaining and that everyone at the hospital is pleased with her progress. She asks to speak to the provider because she wants to know when she might be going home. Tete shares she will likely need home oxygen and she is fine with that. She co ntinues on high flow O2 with FI02 greater than 50%. The heart monitor has been removed to make it easier for her to prone. CM will continue to follow. A: Tete is a 70 year old female admitted to [facility] on 08/12/21 for Covid Pneumonia. P: Tete will likely be discharged with no new services when medically cleared but it is a little early in her hospital stay to know how she will do. It is possible that home health may be helpful. She will follow up with her community providers and plan of care and transport with family. CM will continue to assess for ongoing discharge needs.
--- NOTE | 2021-08-15 15:59 | W.PM.PROGNOT ---
Date of Service Date of service: 08/15/21 Time of Service: 15:59 Assessment and Plan Assessment and plan (1) Pneumonia due to COVID-19 virus: Status: Acute Assessment and plan: still requiring oxygen to maintain sats, on high flow with FIO2 greater than 50% continue decadron, remdesivir, baricitinab, oxygen to maintain sats above 90 encourage proning (2) Pulmonary emboli: Status: None Assessment and plan: fully anticoagulated (3) DVT prophylaxis: Status: Acute Assessment and plan: fully anticoagulated teds, scds (4) Discharge planning issues: Status: Acute Assessment and plan: anticipate at discharge to home with no services. discussed with Dr Connors. Subjective Subjective Patient reports: no new complaints, feels better, tolerating liquids well, tolerating a regular diet and afebrile Interval history since last seen: remains hypoxic with high oxygen requirements. Exam Const General: cooperative Nutritional Appearance: obese Orientation: alert, awake and oriented x3 HENMT Head: normal to inspection, normocephalic and atraumatic Mouth: moist mucous membranes abnormal (dry) Chest Chest: normal inspection of the chest Resp Effort & Inspection: able to speak in complete sentences and no cough Cardio Rate: regular rate (on telemetry, sinus) Rhythm: regular rhythm GI Inspection: normal to inspection and obesity Palpation: soft Skin General skin exam: no rashes or lesions noted Neuro General: patient alert, patient awake and patient oriented x3 Extrem General: normal to inspection and full ROM Psych Mood: congruent mood Affect: normal affect Attitude: cooperative Thought Process: normal Thought Content: normal Insight: insight good Judgment: judgment good Objective Last Vital Signs Temp 36.1 C L 08/15/21 09:40 Pulse 59 L 08/15/21 09:40 Resp 12 08/15/21 09:40 BP 110/65 08/15/21 09:40 Pulse Ox 95 08/15/21 12:46 Laboratory Results - last 24 hr 08/15/21 08/15/21 07:25 07:25 WBC 7.33 RBC 4.94 Hgb 9.5 L Hct 34.7 L MCV 70.2 L MCH 19.2 L MCHC 27.4 L RDW 19.8 H Plt Count 297 MPV 9.6 Immature Gran % 1.0 Neutrophils % 74.4 Lymphocytes % 15.7 Monocytes % 8.9 Eosinophils % 0.0 Basophils % 0.0 Nucleated RBC % 0 Absolute Neutrophils 5.46 Absolute Lymphocytes 1.15 L Absolute Monocytes 0.65 Absolute Eosinophils 0.00 Absolute Basophils 0.00 RBC Morphology See Below Polychromasia Present Hypochromasia 1+ Anisocytosis 1+ Microcytosis 2+ Sodium 138 Potassium 4.1 Chloride 104 Carbon Dioxide 24.9 Anion Gap 9.1 BUN 17 D Creatinine 0.7 Estimated GFR/1.73 m2 >= 60.00 Glucose 105 Calcium 8.7 Total Bilirubin 0.4 AST 109 H ALT 129 H Alkaline Phosphatase 91 Total Protein 6.8 Albumin 3.0 L
[2021-08-15] MEDS: Normal Saline Flush 10 ML SYR IVP (21:03)
[2021-08-16] VITALS (8 sets, daily range): BP systolic 125–143; BP diastolic 78–91; PULSE 51–72; RESP 14–16; TEMP 35.6–36; O2SAT 92–97
[2021-08-16] MEDS: Budesonide/Formoterol 160/4.5 6 GM 60 PUFF INH IH ×2 (09:05→20:07)
[2021-08-16] MEDS: Apixaban 2.5 MG TAB PO ×2 (09:38→20:08)
[2021-08-16] MEDS: Ascorbic Acid 500 MG TAB 1000 MG PO ×2 (09:38→20:08)
[2021-08-16] MEDS: Cholecalciferol (Vitamin D3) 1,000 UNIT TAB 2000 UNITS PO (09:39)
[2021-08-16] MEDS: Fluticasone NASAL SPRAY 16 GM BTL NS (09:39)
[2021-08-16] MEDS: Multivitamin TAB 1 TAB PO (09:39)
[2021-08-16] MEDS: Omeprazole 20 MG CAPCR PO (09:39)
[2021-08-16] MEDS: Dexamethasone 4 MG TAB 6 MG PO (09:39)
[2021-08-16] MEDS: Zinc Sulfate 220 MG TAB PO (09:40)
[2021-08-16 09:44] LABS: Abs Immature Grans 0.12 10^3/uL (0.0-0.06); Absolute Basophil Count 0.01 10^3/uL (0.0-0.2); Absolute Lymphocyte Count 1.31 10^3/uL (1.2-3.4); Absolute Monocyte Count 0.49 10^3/uL (0.1-0.8); Absolute Neutrophil Count 8.13 10^3/uL (1.2-6.7); Basophils % 0.1; HCT 39.2 % (36.0-46.0); HGB 10.6 g/dL (11.2-15.7); Immature Grans % 1.2; MCH 19.1 pg (27.0-33.0); MCV 70.6 fL (80-95); MPV 9.6 fL (8.0-11.0); Monocytes % 4.9; Neutrophils % 80.8; Nucleated RBC 0 %; Platelet Count 392 10^3/uL (130-400); RBC 5.55 10^6/uL (3.93-5.22); RDW 20.1 % (11.7-14.6); RDW-SD 48.7 fL; WBC 10.06 10^3/uL (4.4-10.8)
[2021-08-16 09:53] LABS: C-Reactive Protein 0.13 mg/dL (0.0-0.3)
[2021-08-16 09:55] LABS: Anisocytosis 2+; Diff Comment RBC Morph Reviewed; Hypochromasia 1+; Microcytosis 2+; Polychromasia Present
[2021-08-16 10:05] LABS: ALT 119 U/L (14-59); AST 67 U/L (15-37); Albumin 3.4 g/dL (3.4-5.0); Alkaline Phosphatase 103 U/L (46-116); Anion Gap 12.3 mmol/L (3-11); BUN 18 mg/dL (7-18); Bilirubin, Total 0.5 mg/dL (0.2-1.0); CO2 25.7 mmol/L (21.0-32.0); CREATININE 0.8 mg/dL (0.55-1.02); Chloride 102 mmol/L (98-107); Glucose 121 mg/dL (74-106); Potassium 3.8 mmol/L (3.5-5.1); Sodium 140 mmol/L (136-145); Total Protein 7.4 g/dL (6.4-8.2)
--- NOTE | 2021-08-16 16:44 | W.PM.PROGNOT ---
Date of Service Date of service: 08/16/21 Time of Service: 16:44 Assessment and Plan Assessment and plan (1) Pneumonia due to COVID-19 virus: Status: Acute Assessment and plan: Oxygen requirements have greatly improved over the last 2 days. She is currently down to 2 L/min per nasal cannula. Continue baricitinib and Decadron. Patient has completed her course of Remdesivir. I-S and Acapella are at her bedside and she is encouraged to use the same. She is also encouraged to practice proning or at least try sitting up as much as possible and avoiding lying on her back. (2) History of pulmonary embolism: Status: Resolved Assessment and plan: Patient is currently on apixaban 2.5 mg twice daily. It is unclear why she is on this reduced dose when in fact the treatment dose is 5 mg twice daily. She does not have any chronic kidney disease and she does not have a low BMI and her age is not 80 years of age or older. Nevertheless this is her home dose of apixaban and at present I will continue the current dose since there is no evidence of current thromboembolic disease (3) DVT prophylaxis: Status: Acute Assessment and plan: cont. apixaban 2.5 mg bid. no need for TEDS/SCD as she is on apixaban (4) Discharge planning issues: Status: Acute Assessment and plan: anticipate at discharge to home with no services. Subjective Subjective Interval history since last seen: Tete Faith is a 70-year-old female who is unvaccinated for COVID-19 because she in her words I will not put that s_it in my body. She is asking how soon can she leave the hospital. I explained to her it is difficult to say for certain when one has contracted COVID-19 pneumonia. I explained her that she has made progressive improvement over the last couple days going down from 50 L/min high flow nasal cannula down to 5 L/min nasal cannula yesterday and now she is currently at 2 L/min per nasal cannula. She has no fevers and minimal cough that is nonproductive. She is not dyspneic at rest or with ADL. Patient is currently on baricitinib 4 mg daily along with dexamethasone 6 mg daily. She has completed her course of remdesivir finishing this yesterday. She is chronically anticoagulated with apixaban 2.5 mg twice daily for an old pulmonary embolus. Her D-dimer was elevated on admission at 905 with the most recent level was still elevated at 789 however her CTA of her chest on admission showed no evidence for pulmonary embolism but did demonstrate bilateral groundglass infiltrates consistent with Covid pneumonia. Patient has not been performing proning procedures but has been trying to sit up or lie on her side. I emphasized to her the need to practice proning to avoid developing basilar atelectasis and worsening air exchange and worsening hypoxemia. I also encouraged her to use her Acapella and her incentive spirometer. Exam Narrative Exam Narrative: Obese white female sitting up in her bed reading Lungs with bibasilar dry rales no rhonchi or wheezing Heart regular rate and rhythm Abdomen is obese soft nontender nondistended Lower extremities without peripheral cyanosis or edema Objective Last Vital Signs Temp 35.6 C L 08/16/21 09:38 Pulse 63 08/16/21 09:38 Resp 14 08/16/21 10:39 BP 130/82 08/16/21 09:38 Pulse Ox 94 08/16/21 12:56 Laboratory Results - last 24 hr 08/16/21 08/16/21 08/16/21 09:25 09:25 09:25 WBC 10.06 D RBC 5.55 H Hgb 10.6 L Hct 39.2 MCV 70.6 L MCH 19.1 L MCHC 27.0 L RDW 20.1 H Plt Count 392 MPV 9.6 Immature Gran % 1.2 Neutrophils % 80.8 Lymphocytes % 13.0 Monocytes % 4.9 Eosinophils % 0.0 Basophils % 0.1 Nucleated RBC % 0 Absolute Neutrophils 8.13 H Absolute Lymphocytes 1.31 Absolute Monocytes 0.49 Absolute Eosinophils 0.00 Absolute Basophils 0.01 RBC Morphology See Below Polychromasia Present Hypochromasia 1+ Anisocytosis 2+ Microcytosis 2+ Sodium 140 Potassium 3.8 Chloride 102 Carbon Dioxide 25.7 Anion Gap 12.3 H BUN 18 Creatinine 0.8 Estimated GFR/1.73 m2 >= 60.00 Glucose 121 H Calcium 9.0 Total Bilirubin 0.5 AST 67 H ALT 119 H Alkaline Phosphatase 103 C-Reactive Protein 0.13 Total Protein 7.4 Albumin 3.4
[2021-08-16] MEDS: Acetaminophen 500 MG TAB 1000 MG PO (20:07)
[2021-08-16] MEDS: Ferrous Sulfate 325 MG TAB PO (20:08)
[2021-08-16] MEDS: Normal Saline Flush 10 ML SYR IVP (20:08)
[2021-08-17 01:00] VITALS: BP 120/88; PULSE 61; RESP 16; TEMP 36; O2SAT 92
[2021-08-17 08:40] VITALS: BP 144/93; PULSE 63; RESP 18; TEMP 36.2; O2SAT 95
[2021-08-17] MEDS: Apixaban 2.5 MG TAB PO (08:42)
[2021-08-17] MEDS: Budesonide/Formoterol 160/4.5 6 GM 60 PUFF INH IH (08:45)
[2021-08-17] MEDS: Multivitamin TAB 1 TAB PO (08:45)
[2021-08-17] MEDS: Fluticasone NASAL SPRAY 16 GM BTL NS (08:45)
[2021-08-17] MEDS: Omeprazole 20 MG CAPCR PO (08:45)
[2021-08-17] MEDS: Dexamethasone 4 MG TAB 6 MG PO (08:46)
[2021-08-17] MEDS: Cholecalciferol (Vitamin D3) 1,000 UNIT TAB 2000 UNITS PO (08:46)
[2021-08-17] MEDS: Ferrous Sulfate 325 MG TAB PO (08:46)
[2021-08-17] MEDS: Ascorbic Acid 500 MG TAB 1000 MG PO (08:46)
[2021-08-17 08:53] VITALS: O2SAT 91
[2021-08-17 10:31] VITALS: O2SAT 91
[2021-08-17] MEDS: Zinc Sulfate 220 MG TAB PO (10:31)
[2021-08-17 10:40] VITALS: O2SAT 94
[2021-08-17 11:15] VITALS: PULSE 72; PULSE 75; PULSE 78; RESP 16; O2SAT 91; O2SAT 94
--- NOTE | 2021-08-17 12:24 | W.PM.DS.N ---
Date of service: 08/17/21 Time of Service: 12:24 DS: Diagnosis Discharge Diagnosis (1) Pneumonia due to COVID-19 virus: Status: Acute Asessment and Plan: improving. Now on room air w/ oxygen saturations of 94 to 97% at rest and maintaining at least 91% or above w/ activity. No dyspnea w/ ADL's. Patient was treated w/ decadron, baricitinib and remdesivir during her hospitalization. No home Rx is needed nor was any prescribed. Patient declined counseling regarding vaccination. (2) History of pulmonary embolism: Status: Resolved Asessment and Plan: patient remains on low dose apixaban 2.5 mg bid. In light of her continued use of this anticoagulant, she ought to have further GI workup for her microcytic anemia (3) Microcytic anemia: Status: Acute Asessment and Plan: patient needs further evaluation as an outpatient for etiology of her microcytic anemia. Suspect an iron deficiency anemia and ought to have an EGD and c-scope if one has not been performed recently. Discharge Plan Disposition Patient Disposition: HOME Condition: Improving Discharge Details Reason For Visit: Covid Pneumonia Admit Date/Time: 08/12/21 09:48 Admit Provider: Dc Connors Attending Provider: Dc Connors Primary Care Provider: Ravi Parks Hospital Course Hospital Course: Patient was admitted to [facility] 08/11 d/t symptoms of dyspnea, nonproductive cough, fever, chills and hypoxemia w/ SPO2 72% on her home oximeter in setting of COVID-19 infection. Patient is unvaccinated. Evaluation in the ER included routine labs including CMP, CBC, CRP, ferritin, d-dimer and nasal swab for SARS-COV2 and CTA of chest. CBC was remarkable for microcytic anemia (Hb 9.6 gm, MCV 68), absolute lymphopenia, normal ferrtin (suggestive of iron deficieny anemia given expected high ferritin in setting of COVID-19 infection), elevated CRP of 1.55., mild transaminitis, elevated d-dimer of 905. CTA chest demonstrated bilateral ground glass infiltrates consistent w/ COVID-19 pneumonia but no acute PE. Nasal swab was positive for SARS-COV2 infection. Patient was admitted and placed on simple nasal cannula for oxygen supplementation but overnight had worsening hypoxemia and was transitioned to HFNC at 50 LPM 55% FIO2. She was started on Remdesivir and decadron, baricitinib along w/ supplemental vitamin D, vitamin C and zinc and atorvastatin and pepcid. She was place on Symbicort in substitution for her Breo Ellipta. She was kept on her home dose of Apixaban 2.5 mg bid for which she had been on for old PE. She responded well to treatment and her oxygen needs declined over the next couple days such that by 08/15 she was back down to simple nasal cannula at 5 LPM. She continued to improve and by 08/17 she was off supplemental oxygen. R.T. performed an ambulatory pulse oximetry check to be sure that she did not desaturate w/ walking around the room. Her resting oxygen saturation was 94% and w/ activity she remained at 91%. As the patient was feeling better and desiring to return home as quickly as possible, and seeing as she no longer required oxygen, she was discharged home to follow up w/ her PCP next week. She should be evaluated by her PCP for her microcytic anemia particularly in light of her chronic apixaban use. Her hemoglobin remained stable w/ her hemoglobin on discharge being 10.6 gm. Patient was advised to get a COVID-19 vaccination in 3 to 4 weeks post discharge but she declined to consider this or discuss its merits. She was adivsed that given the onset of her symptoms beginning around 5 to 7 days prior to her presentation to the ER, she should now be able to come out of respiratory quarrantine however she advised to still wear a mask in public to help protect herself from future infections. Home Meds and New Rx's Prescriptions: Continued Breo Ellipta 200-25 mcg/dose blister with device 1 inh IH DAILY RF: 0 multivitamin [Daily Multiple] 1 EACH tablet 1 ea PO DAILY RF: 0 acetaminophen [Tylenol Extra Strength] 500 MG tablet 1,000 mg PO Q6H PRN RF: 0 fluticasone propionate 16 GM spray,suspension 1 spray NS DAILY RF: 0 cholecalciferol (vitamin D3) [Vitamin D3] 1,000 UNIT capsule 1,000 unit PO DAILY RF: 0 [id number] serr 1 EACH tablet 1 ea PO DAILY RF: 0 vitamin E succinate 100 UNIT tablet 100 unit PO DAILY RF: 0 vitamin c 1 tab PO DAILY RF: 0 omeprazole 20 MG capsule,delayed release(DR/EC) 20 mg PO DAILY Qty: 30 RF: 3 Eliquis 2.5 mg tablet 2.5 mg PO BID RF: 0 Discharge Instructions Instructions: Droplet Precautions (GEN), COVID-19 (Coronavirus Disease 2019) (DC), COVID-19: Slow the Coronavirus Spread (DC), Face Coverings (Masks) and COVID-19 (DC) Additional Instructions: You have been treated for COVID-19 pneumonia. Your oxygen levels have now recovered and you no longer require hospitalization. While your recovery from COVID-19 will have induced an natural antibody response, we do not know how long your immunity nor how effective your immune response will protect you from future infections. You should protect yourself from future COVID-19 infections by wearing a mask when in public and you should consider getting COVID vaccination in 3 to 4 weeks from your recovery. We know that people you have recovered from COVID-19 and get immunized have the highest antibody response. You are now13 days from your stated onset of your symptoms and therefore you should no longer be infectious to others, however, you should still wear a mask when in public for your own protection. Stand Alone Forms: Nursing Discharge Form Referrals: Ravi Parks MD [Primary Care Provider] - (call the office tomorrow for follow up appointment) Activity:: Activity as Tolerated Equipment/Supplies:: No Equipment Needed Diet:: Normal Diet Discharge Orders Discharge Orders: Discharge Order (Routine); Ordered 08/17/21 Ordered By: Kingston Lancaster Discharge Data Discharge Date/Time-TO BE ENTERED AT DEPARTURE: 08/17/21 13:12 DS: Summary Time Spent with Patient providing and/or coordinating discharge services: Less than 30 minutes Status at Discharge Functional status at discharge: independent ambulation Overall status at discharge: patient is progressing back to baseline Mental Status: mental status grossly normal Speech and Movement: speech and movement normal Mood: congruent mood Affect: normal affect Exam Narrative Exam Narrative: Patient is sitting up in her bed. She is off oxygen supplementation. She denies any dyspnea. She has no cough. LUngs w/ faint bibasilar rales; no rhonchi nor any wheezing. Heart is RRR; Abdomen: soft, nontender, nondistended; legs w/out edema Psych Mental Status: mental status grossly normal Speech and Movement: speech and movement normal Mood: congruent mood Affect: normal affect DS: Data Vitals/I&O Vitals and I&O: Vital Signs Temperature 36.2 C L 08/17/21 08:40 Temperature Source Tympanic 08/17/21 08:40 Pulse 63 08/17/21 08:40 Pulse Rhythm Regular 08/17/21 09:50 Pulse 69 08/11/21 14:20 Respiratory Rate 18 08/17/21 08:40 Respiratory Effort Non-Labored 08/17/21 09:50 Respiratory Depth Normal 08/17/21 09:50 Respiratory Pattern Normal 08/17/21 09:50 Blood Pressure 144/93 H 08/17/21 08:40 Blood Pressure Mean 79 08/11/21 14:15 Blood Pressure Position Supine 08/11/21 11:15 Pulse Oximetry 94 08/17/21 10:40 Oxygen Delivery Method Room Air 08/17/21 10:40 Oxygen Flow Rate 0 08/17/21 10:40 Fraction of Inspired Oxygen (FIO2) 55 08/15/21 04:00 Pain Level 0 08/17/21 08:40 Comment 08/17/21 10:40 Intake & Output 08/16/21 08/17/21 08/17/21 23:59 11:59 23:59 Intake Total 310 / 610 750 / 750 Output Total 450 / 1850 750 / 750 Balance -140 / -1240 0 / 0 Intake: IV Oral 300 / 600 750 / 750 Output: Urine 450 / 1850 750 / 750 Other: Urine Color Yellow Yellow Urine Appearance Clear Clear Stool Size Moderate Stool Characteristics Soft Brown Voiding Methods Bedside Commode Bedside Commode [facility] Active Problem List (Updated 12/16/18 @ 07:49 by Mary Arshad MD) Pneumonia due to COVID-19 virus (Acute) H/O local excision of skin lesion (Acute ~12/09/18) Medical History Calf pain Chronic cough Dysthymia Hypercholesteremia Left hip pain Osteoarthritis Situational stress Swollen leg Surgical History S/P excision of skin lesion, follow-up exam Family History Sister DVT of lower extremity (deep venous thrombosis) Social History Smoking/Tobacco Use Status: Never Smoking risk assessment performed?: Yes Alcohol Intake: current Alcohol Intake frequency: a few times a week Drug use: Never Substance use type: does not use Household members: spouse
--- NOTE | 2021-08-17 14:19 | PDOC.CMDIS ---
- If Service Date Differs Date of service: 08/17/21 Time of Service: 14:19 LACE Index Scoring Tool - Questions: Length of Stay (in days): 4 - 6 Acuity (Admit via E.D.?): Yes Comorbidities: Any Tumor E.D. Visits: 1 - Answers: Total Score: 10 Risk of Readmission: High Risk Care Management Discharge Reason for Hospitalization: Covid Pneumonia Discharge Plan: Tete is discharged home with no services. She will follow up with her PCP and plan of care as directed. She is transported home via private vehicle by her . Patient/Family Education Needs: Review discharge instructions, limitations, follow up plan of care, Ask Me Three, and self management.
== END 2021-08-17 13:12 | disposition home or self-care (01) | DRG 177 ==
LOC: ER 15:11 → MS 16:26
PROVIDERS: Nurse Practitioner Acute Care; Nurse Practitioner Family; Admitting Provider Family Medicine; Emergency Provider Student in an Organized Health Care Education/Training Program; PCP Internal Medicine; Visit Provider Family Medicine
DX: U07.1 COVID-19 (principal); J12.82 Pneumonia due to coronavirus disease 2019; E66.9 Obesity, unspecified; Z68.37 Body mass index [BMI] 37.0-37.9, adult; F34.1 Dysthymic disorder; E78.00 Pure hypercholesterolemia, unspecified; Z79.01 Long term (current) use of anticoagulants; Z86.711 Personal history of pulmonary embolism; R05.3 Chronic cough
CPT/HCPCS: 36415; 71275; 80048; 80053; 80076; 84145; 87635; 93005; 94618; 94640; 96365; 96375; 99285; 82728; 83880; 84484; 85025; 85379; 86140; 93010; 99220; 99232; 99233; 99238; G0378; J1100; J3490; J8540

== ENCOUNTER → 2021-10-17 09:20 | Outpatient (BNVA) | payer MEDICARE, OTHER, SELFPAY | PROVIDERS: PCP Family Medicine; Referring Provider Family Medicine; Visit Provider Surgery | DX: L98.9 Disorder of the skin and subcutaneous tissue, unspecified (principal); Z85.820 Personal history of malignant melanoma of skin | CPT/HCPCS: 99212; 99213 ==

== ENCOUNTER 2023-07-21 13:41 | Outpatient (REF) | payer MEDICARE, OTHER, SELFPAY ==
[2023-07-21 14:53] LABS: HGB 11.2 g/dL (11.2-15.7); MCH 24.2 pg (27.0-33.0); MCHC 30.3 % (32.0-36.0); MCV 80 fL (80-95); MPV 10.6 fL (8.0-11.0); Platelet Count 317 10^3/uL (130-400); RBC 4.62 10^6/uL (3.93-5.22); RDW 15.5 % (11.7-14.6); RDW-SD 44.8 fL; WBC 6.71 10^3/uL (4.4-10.8)
[2023-07-21 15:07] LABS: ALT 24 U/L (14-59); AST 24 U/L (15-37); Albumin 4.1 g/dL (3.4-5.0); Alkaline Phosphatase 96 U/L (46-116); Anion Gap 11.3 mmol/L (3-11); BUN 16 mg/dL (7-18); Bilirubin, Total 0.3 mg/dL (0.2-1.0); CO2 24.7 mmol/L (21.0-32.0); CREATININE 0.8 mg/dL (0.55-1.02); Calcium 9.6 mg/dL (8.5-10.1); Chloride 103 mmol/L (98-107); Estimated GFR 78.72 (mL/min/1.73m2); Ferritin 8 ng/mL (8-252); Glucose 116 mg/dL (74-106); Potassium 4.5 mmol/L (3.5-5.1); Sodium 139 mmol/L (136-145); Total Protein 7.6 g/dL (6.4-8.2)
[2023-07-21 15:21] LABS: Iron 37 ug/dL (50-170); Total Iron Binding Capacity 465 ug/dL (250-450); Transferrin Sat 8 % (15-50)
== END 2023-07-21 13:42 | disposition home or self-care (01) ==
LOC: NCHCN 13:41
PROVIDERS: PCP Family Medicine; Visit Provider Nurse Practitioner Family
DX: D50.9 Iron deficiency anemia, unspecified (principal); E66.9 Obesity, unspecified; Z76.89 Persons encountering health services in other specified circumstances
CPT/HCPCS: 80053; 85027; 82728; 83540; 83550; 84443

== ENCOUNTER 2024-11-27 15:24 | Outpatient (REF) | payer MEDICARE, OTHER, SELFPAY ==
[2024-11-27 15:34] LABS: Abs Immature Grans 0.02 10^3/uL (0.0-0.06); Absolute Basophil Count 0.04 10^3/uL (0.0-0.2); Absolute Eosinophil Count 0.15 10^3/uL (0.0-0.7); Absolute Lymphocyte Count 1.44 10^3/uL (1.2-3.4); Absolute Monocyte Count 0.61 10^3/uL (0.1-0.8); Absolute Neutrophil Count 4.76 10^3/uL (1.2-6.7); Basophils % 0.6 %; Eosinophils % 2.1 %; HCT 44.7 % (36.0-46.0); HGB 14.1 g/dL (11.2-15.7); Immature Grans % 0.3 %; Lymphocytes % 20.5 %; MCH 26.7 pg (27.0-33.0); MCHC 31.5 % (32.0-36.0); MCV 85 fL (80-95); MPV 10.4 fL (8.0-11.0); Monocytes % 8.7 %; Neutrophils % 67.8 %; Platelet Count 309 10^3/uL (130-400); RBC 5.29 10^6/uL (3.93-5.22); RDW 15.9 % (11.7-14.6); RDW-SD 48.9 fL; WBC 7.02 10^3/uL (4.4-10.8)
[2024-11-27 15:58] LABS: Anion Gap 12.4 mmol/L (3-11); BUN 17 mg/dL (7-18); CO2 24.6 mmol/L (21.0-32.0); CREATININE 0.9 mg/dL (0.55-1.02); Calcium 9.7 mg/dL (8.5-10.1); Chloride 106 mmol/L (98-107); Estimated GFR 67.92 (mL/min/1.73m2); Glucose 99 mg/dL (74-106); Potassium 4.6 mmol/L (3.5-5.1); Sodium 143 mmol/L (136-145)
[2024-11-27 16:53] LABS: Iron 123 ug/dL (50-170); Total Iron Binding Capacity 463 ug/dL (250-450); Transferrin Sat 27 % (15-50)
[2024-11-28 11:54] LABS: Hepatitis C Ab w Rflx HCV PCR Negative (Negative)
[2024-11-28 14:11] LABS: Ferritin 18 ng/mL (8-252)
== END 2024-11-27 15:25 | disposition home or self-care (01) ==
LOC: NCHCN 15:24
PROVIDERS: PCP Nurse Practitioner Family; Visit Provider Nurse Practitioner Family
DX: D50.9 Iron deficiency anemia, unspecified (principal); Z86.711 Personal history of pulmonary embolism; Z11.59 Encounter for screening for other viral diseases
CPT/HCPCS: 80048; 86803; 82728; 83540; 83550; 85025

== ENCOUNTER 2024-12-28 01:10 | Outpatient (CLI) | payer MEDICARE, OTHER, SELFPAY ==
--- NOTE | 2024-12-28 | DI.MAMMO_ITS ---
Exam(s) MAMMO SCREENING EXAM: MAMMO SCREENING CLINICAL HISTORY: Z12.31 Screening, IMPLANTS TECHNIQUE: Mammograms were interpreted according to the usual protocol including computer analysis w [employer] CAD system, tomosynthesis and C-view imaging. COMPARISON: 2017 and 2018 FINDINGS: The breasts are composed of scattered fibroglandular densities, Breast Density category B. No suspicious masses or suspicious microcalcifications are seen. No skin thickening or abnormal axillary lymph nodes are seen. There has been no significant change from prior exams. IMPRESSION: BI-RADS Category 1, Negative mammogram Yearly screening mammography is recommended. Breast Density - Category B, scattered fibroglandular densities. A negative radiographic report should not delay biopsy if a dominant or clinically suspicious mass is present. Up to ten percent of cancers are not identified on mammography. A negative report may reinforce clinical impression. Adenosis and dense breasts may obscure an underlying neoplasm. False positive reports average 6 to 10%. Patient will receive a letter notifying them of these results.
== END 2024-12-28 01:30 ==
LOC: DI 01:10
PROVIDERS: PCP Nurse Practitioner Family; Visit Provider Nurse Practitioner Family
DX: Z12.31 Encounter for screening mammogram for malignant neoplasm of breast (principal); R92.323 Mammographic fibroglandular density, bilateral breasts
CPT/HCPCS: 77063; 77067

== ENCOUNTER 2025-03-26 18:44 | Outpatient (REF) | payer MEDICARE, OTHER, SELFPAY ==
[2025-03-26 14:40] LABS: HCT 41.9 % (36.0-46.0); HGB 13.0 g/dL (11.2-15.7); MCH 26.6 pg (27.0-33.0); MCHC 31.0 % (32.0-36.0); MCV 86 fL (80-95); MPV 10.4 fL (8.0-11.0); Platelet Count 281 10^3/uL (130-400); RBC 4.89 10^6/uL (3.93-5.22); RDW 13.7 % (11.7-14.6); RDW-SD 42.5 fL; WBC 6.53 10^3/uL (4.4-10.8)
== END 2025-03-26 18:45 | disposition home or self-care (01) ==
LOC: NCHCN 18:44
PROVIDERS: PCP Nurse Practitioner Family; Visit Provider Nurse Practitioner Family
DX: D50.9 Iron deficiency anemia, unspecified (principal)
CPT/HCPCS: 85027

== ENCOUNTER 2025-03-29 01:16 | Outpatient (CLI) | payer MEDICARE, OTHER, SELFPAY ==
--- NOTE | 2025-03-29 08:41 | DI.RAD_ITS ---
Exam(s) XR HIP LT COMPLETE AP PELVIS EXAM: XR HIP LT COMPLETE AP PELVIS CLINICAL HISTORY: IDIOPATHIC OA,LT HIP PAIN, M16.12,M25.552. TECHNIQUE: 2D digital imaging was performed. COMPARISON: No exams were available for comparison FINDINGS: 3 views No evidence of pelvic nor hip fracture. There is stable position alignment of the left hip prosthesis. No fracture or loosening evident. There are moderate-advanced degenerative changes in the opposite-right hip noted. IMPRESSION: As above. DATA REPOSITORY: RADIATION DOSE DELIVERED:
== END 2025-03-29 01:36 ==
LOC: DI 01:16
PROVIDERS: PCP Nurse Practitioner Family; Visit Provider Nurse Practitioner Family
DX: M16.12 Unilateral primary osteoarthritis, left hip (principal)
CPT/HCPCS: 73502